=== PATIENT | female | born 1940 | race Caucasian/White ===

== ENCOUNTER 2019-03-15 20:41 | Inpatient (IN) ==
[2019-03-15] MEDS ORDERED: SODIUM CHLORIDE 0.9% 1000ML 1,000 ML IV ONE ×2 (21:35→23:13)
[2019-03-15] MEDS ORDERED: ONDANSETRON INJ 2 MG/ML 2 ML VIAL IV STA (21:35)
[2019-03-15] MEDS ORDERED: MoRPHine SULFATE 4 MG/ML 1 ML CARP\\VIAL IV STA (21:50)
[2019-03-15 21:58] LABS: Hematocrit (blood only) 44.4 % (37-47); Hemoglobin 14.8 g/dL (12.0-16.0); Mean Corpuscular Hemoglobin 29.4 pg (25-34); Mean Corpuscular Hgb Conc 33.3 g/dL (32-36); Mean Corpuscular Volume 88.1 fL (80-100); Mean Platelet Volume 11.1 fL (7.4-10.4); Platelet Count 339 K/uL (130-400); RDW Coefficient of Variation 14.8 % (11.5-14.5); RDW Standard Deviation 47.3 fL (36.4-46.3); Red Blood Count 5.04 M/uL (4.2-5.4); White Blood Count 28.12 K/uL (4.8-10.8)
--- NOTE | 2019-03-15 21:59 | XRay Report ---
XR chest 1V portable CLINICAL HISTORY: Pain, radiating to the abdomen. COMPARISON STUDY: 05/05/2009 FINDINGS: The heart is borderline enlarged. There is aortic tortuosity. There is no failure. There is no focal pulmonary consolidation. There is no free intraperitoneal air. There is minimal left basila r atelectasis.[ IMPRESSION: No active disease in the chest. Electronically signed by: Rm Patel M.D. 03/15/2019 9:58 PM
[2019-03-15 22:20] LABS: Basophils # (auto) 0.03 K/uL (0-0.2); Basophils % (auto) 0.1 %; Immature Granulocytes % (auto) 0.7 %; Lymphocytes # (auto) 0.68 K/uL (1.2-3.4); Lymphocytes % (auto) 2.4 %; Monocytes # (auto) 1.36 K/uL (0.11-0.59); Monocytes % (auto) 4.8 %; Neutrophils # (auto) 25.85 K/uL (1.4-6.5); Ovalocytes 1+
[2019-03-15 22:22] LABS: Albumin Level 3.2 gm/dl (3.4-5.0); BUN Creatinine Ratio 14.6 (10-20); Calcium 9.3 mg/dl (8.5-10.1); Creatinine Clr Calc Pharmacy 28.3 ml/min; Est GFR (African American) 37.7; Est GFR (Non-African American) 32.5; Potassium 3.8 mmol/L (3.5-5.1)
[2019-03-15 22:37] LABS: Albumin Globulin Ratio 0.8 (0.9-2); Bilirubin,Total 0.7 mg/dl (0.2-1); Globulin 3.9 gm/dl (2.5-4.0); Total Protein 7.1 gm/dl (6.4-8.2); Troponin I 0.028 ng/ml (0-0.045)
[2019-03-15] MEDS ORDERED: IOVERSOL 100ml IV PRN (22:49)
--- NOTE | 2019-03-15 23:01 | CT Scan Report ---
CT abd pelvis IV con only CLINICAL HISTORY: Bandlike central abdominal pain COMPARISON STUDY: None. TECHNIQUE: The patient was scanned in a dynamic helical fashion during intravenous administration of 90 cc of Optiray 320. A dose lowering technique was utilized adhering to the principles of ALARA. CT DOSE: 405.17 mGy.cm FINDINGS: Lower chest: r there is a partially visualized left apical 25 mm right breast mass. There are basilar atelectatic changes. Liver: The contrast-enhanced liver is normal in size, contour, and attenuation. There is no intrahepa tic biliary ductal dilatation. The hepatic veins and portal veins are patent. Gallbladder: Cholelithiasis. Mildly distended. Spleen: Normal in size and attenuation. Pancreas: Unremarkable. Adrenal glands: Unremarkable. Kidneys: There is symmetric renal cortical enhancement. The kidneys are normal in size without hydron ephrosis. Bowel: There are no transition zones indicate bowel obstruction. By history the appendix is surgicall y absent. There is extensive colonic wall thickening extending from the distal transverse colon to th e sigmoid colon. The findings are indicative a nonspecific colitis. Peritoneum: There is no intraperitoneal free air or abdominal ascites. There is a small fat-containin g umbilical hernia. Vasculature: There is no evidence of abdominal aortic aneurysm. There are moderately extensive aortoi liac atheromatous calcifications Adenopathy: None. Pelvic viscera: The bladder, and pelvic viscera are unremarkable. Skeletal structures: No destructive osseous lesions are seen. IMPRESSION: 1. No evidence of bowel obstruction. No evidence of free air 2. Extensive long segment colonic wall thickening extending from the distal transverse colon to the s igmoid indicative of a nonspecific colitis 3. Cholelithiasis 4. Partially visualized circumscribed elliptical 25 mm right breast mass Electronically signed by: Rm Patel M.D. 03/15/2019 10:59 PM
[2019-03-15] MEDS ORDERED: PIPERACILLIN/TAZOBACTAM 4.5 GM/120 ML BAG IV ONE (23:13)
[2019-03-15] MEDS ORDERED: PROMETHAZINE 12.5 MG/50.5 ML BAG IV STA (23:13)
[2019-03-15] MEDS ORDERED: PIPERACILL/TAZOBAC CONSULT ACTIVE PRN (23:13)
[2019-03-15] MEDS ORDERED: fentaNYL citrate 100 MCG/2 ML VIAL IV STA (23:30)
[2019-03-15 23:39] LABS: Magnesium 2.1 mg/dl (1.8-2.4)
[2019-03-15 23:45] LABS: Partial Thromboplastin Ratio 0.9; Partial Thromboplastin Time 25.2 Seconds (21.0-31.0)
[2019-03-16 00:05] LABS: Thyroid Stimulating Hormone 1.61 uIu/ml (0.300-4.500)
--- NOTE | 2019-03-16 00:34 | History & Physical Report ---
Date of Service March 16, 2019 Assessment & Plan (1) Colitis: Possible severe sepsis SIRS plus ARF plus lactic acid elevation, markedly elevated procalcitonin Rule out C. difficile Rule out calculous cholecystitis as contributory factor to GI symptoms given high alk phos Episodic hypoxemia Patient denies chest pain, S OB symptoms hx COPD as per records (Patient disputes EMR diagnosis.) Past tobacco abuse abnormal outpatient spirometry. CAD status post stent hypertension, stable hyperlipidemia on statin Rx Hyperglycemia, possible prediabetes, outpatient hemoglobin A1c of 5.9 in 2008 history of thigh melanoma status post surgery Right breast mass (present on 2018 mammogram) Medical telemetry given hypoxemia Supplemental O2 Baseline ABG Follow cultures, check C. difficile IVF, follow lactic acid Ceftriaxone, Flagyl for now Oral vancomycin if stool C. difficile positive GI consult if stool C. difficile negative RE colitis Gallbladder ultrasound RE abdominal pain, abnormal alk phos rule out calculous cholecystitis Baseline UA for ARF, hold home losartan until creatinine at baseline May need insulin sliding scale, update hemoglobin A1c Outpatient work-up for right breast mass as per PCP DVT prophylaxis. Heparin subcu Full code History of Present Illness Chief Complaint: Abdominal pain, diarrhea Primary Care Provider: Abhijit Rawls MD History obtained from patient, family, and records. Medical history significant for CAD status post stent, hypertension, hyperlipidemia, COPD as per records, past tobacco abuse, GERD, history of melanoma status post surgery. Recent confinement May 2009 for ACS. [place] [facility] [place] multivessel disease on cardiac catheterization. 1 day history of achy epigastric discomfort followed by nausea, bilious emesis, dark diarrhea episodes. No chest pain, no cough, no S OB. No known sick contacts, no recent antibiotics. 2 days ago patient ate venison at home at a family gathering. 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 At the ER, patient received IV Zosyn for possible sepsis. O2 sats transiently in the 80s at the ER as per RN even before IV Fentanyl administration. Medical History as above July 2018 Spirometry indicates a severe obstructive ventilatory defect. Reduction in FVC could be from obstruction or it may be due to concurrent restriction. Please repeat lung volumes, if clinically indicated.Flow-volume curve is consisitent with obstrucitve ventilatory defect. There is a positive bronchodilator response. Uncorrected diffusion capacity, is moderately reduced. DL/Va is normal. Low diffusion capacity, which is corrected by alveolar ventilation suggests extrathoracic restriction but can be seen in restrictive ventilatory defect also. May 2018 CT chest done after abnormality found on plain chest x-ray showed 1. multiple small lung nodules, one year follow-up chest CT recommended 2. nonspecific small bilateral adrenal nodules, 3 to 6 months follow-up MRI or CT with IV contrast recommended. 2018 mammogram showed scattered fibroglandular densities. No new dominant mass or clustered microcalcifications suspicious for malignancy. 2.5 cm focal asymmetry upper outer quadrant of the right breast proved to be a cyst noted on previous ultrasound. Surgical History : Knee surgery, breast lesion excision, dental surgery, BTL, appendectomy, melanoma surgery right thigh, right oophorectomy Family History : Heart disease, pancreatic cancer, high blood pressure Personal/Social history : Past tobacco abuse, occasional EtOH intake, homemaker in her younger years, lives with Allergies Allergy/AdvReac Type Severity Reaction Status Date / Time celecoxib Allergy Intermediate RASH Verified 03/15/19 23:40 Sulfa (Sulfonamide Allergy Intermediate RASH HIVES Verified 03/15/19 23:40 Antibiotics) rofecoxib AdvReac Intermediate BLEEDING Verified 03/15/19 23:40 Home Medications Home Medications Medication Instructions Recorded Confirmed Type albuterol sulfate 2.5 mg INHALATION Q4H PRN 03/15/19 03/15/19 History amlodipine 5 mg PO DAILY 03/15/19 03/15/19 History aspirin 81 mg PO DAILY 03/15/19 03/15/19 History clopidogrel [Plavix] 75 mg PO DAILY 03/15/19 03/15/19 History conj estrog-medroxyprogest terrell 1 tab PO DAILY 03/15/19 03/15/19 History [Prempro] cyclobenzaprine 5 mg PO TID PRN 03/15/19 03/15/19 History diclofenac sodium [Voltaren] 2 g TOPICAL BID 03/15/19 03/15/19 History ezetimibe [Zetia] 10 mg PO DAILY 03/15/19 03/15/19 History fexofenadine [Sil Allergy] 180 mg PO DAILY PRN 03/15/19 03/15/19 History losartan [Cozaar] 100 mg PO DAILY 03/15/19 03/15/19 History metoprolol tartrate 12.5 mg PO QPM 03/15/19 03/15/19 History metoprolol tartrate 25 mg PO QAM 03/15/19 03/15/19 History nitroglycerin 0.4 mg SUBLINGUAL DIRECTED PRN 03/15/19 03/15/19 History pantoprazole [Protonix] 40 mg PO BID 03/15/19 03/15/19 History rosuvastatin [Crestor] 5 mg PO DIRECTED 03/15/19 03/15/19 History sertraline [Zoloft] 25 mg PO DAILY 03/15/19 03/15/19 History tramadol 50 mg PO BID PRN 03/15/19 03/15/19 History Past Med/Surg History Medical History CAD (coronary artery disease) Hyperlipidemia Hypertension Surgical History History of coronary artery stent placement Family History Other No pertinent family history in first degree relatives Social History Feels Safe at Home: Yes Smoking Status: Current every day smoker Review of Systems Review of Systems: As per HPI, all 10 systems reviewed, all other ROS negative Physical Exam Physical Exam: GENERAL: Slightly uncomfortable, wane, episodic lethargy (post IV fentanyl administration at the ER), no respiratory distress SKIN: Normal color, warm HEENT: Evaro palpebral conjunctivae, no ptosis, dry buccal mucosa, nasal cannula in place NECK : Supple, no tenderness CHEST : Decreased breath sounds , no tenderness HEART : RRR, no obvious murmurs ABDOMEN: Some distention, hypogastric tenderness RECTAL : Intact sphincter, yellow stool (FOBT negative) EXTREMITIES : No LE swelling/tenderness, no other conspicuous deformities noted NEUROLOGIC : Coherent, no facial asymmetry, slightly hard of hearing, no other gross focality Results & Data Vital Signs (Past 12 Hours) Vital Signs Temp Pulse Pulse Resp BP BP Pulse Ox 03/16/19 00:08 80 21 105/61 90 03/15/19 23:26 82 22 124/70 91 03/15/19 22:30 80 24 132/70 95 03/15/19 22:11 81 26 H 90 03/15/19 22:00 78 20 131/84 94 03/15/19 21:45 81 26 H 131/84 90 03/15/19 21:38 95 03/15/19 20:46 37.2 C 89 20 115/76 94 Laboratory Results Laboratory Results WBC 28.12 K/uL (4.8-10.8) H 03/15/19 21:37 RBC 5.04 M/uL (4.2-5.4) 03/15/19 21:37 Hgb 14.8 g/dL (12.0-16.0) 03/15/19 21:37 Hct 44.4 % (37-47) 03/15/19 21:37 MCV 88.1 fL (80-100) 03/15/19 21:37 MCH 29.4 pg (25-34) 03/15/19 21:37 MCHC 33.3 g/dL (32-36) 03/15/19 21:37 RDW Std Deviation 47.3 fL (36.4-46.3) H 03/15/19 21:37 RDW Coeff of Jamison 14.8 % (11.5-14.5) H 03/15/19 21:37 Plt Count 339 K/uL (130-400) 03/15/19 21:37 MPV 11.1 fL (7.4-10.4) H 03/15/19 21:37 Immature Gran % (Auto) 0.7 % 03/15/19 21:37 Neut % (Auto) 92.0 % 03/15/19 21:37 Lymph % (Auto) 2.4 % 03/15/19 21:37 [place] % (Auto) 4.8 % 03/15/19 21:37 Eos % (Auto) 0.0 % 03/15/19 21:37 Baso % (Auto) 0.1 % 03/15/19 21:37 Immature Gran # (Auto) 0.20 K/uL (0.00-0.02) H 03/15/19 21:37 Neut # (Auto) 25.85 K/uL (1.4-6.5) H 03/15/19 21:37 Lymph # (Auto) 0.68 K/uL (1.2-3.4) L 03/15/19 21:37 [place] # (Auto) 1.36 K/uL (0.11-0.59) H 03/15/19 21:37 Eos # (Auto) 0.00 K/uL (0-0.5) 03/15/19 21:37 Baso # (Auto) 0.03 K/uL (0-0.2) 03/15/19 21:37 Ovalocytes 1+ 03/15/19 21:37 APTT 25.2 Seconds (21.0-31.0) 03/15/19 21:37 PTT Ratio 0.9 03/15/19 21:37 Sodium 136 mmol/L (136-145) 03/15/19 21:37 Potassium 3.8 mmol/L (3.5-5.1) 03/15/19 21:37 Chloride 107 mmol/L (98-107) 03/15/19 21:37 Carbon Dioxide 18 mmol/L (21-32) L 03/15/19 21:37 Anion Gap 12.0 (3-11) H 03/15/19 21:37 BUN 22 mg/dl (7-18) H 03/15/19 21:37 Creatinine 1.51 mg/dl (0.6-1.2) H 03/15/19 21:37 Est Cr Clr Drug Dosing 28.3 ml/min 03/15/19 21:37 Est GFR ( Amer) 37.7 03/15/19 21:37 Est GFR (Non-Af Amer) 32.5 03/15/19 21:37 BUN/Creatinine Ratio 14.6 (10-20) 03/15/19 21:37 Glucose 191 mg/dl (70-99) H 03/15/19 21:37 POC Lactic Acid [place]ade 4.06 mmol/L (0.90-1.70) H 03/15/19 23:08 Calcium 9.3 mg/dl (8.5-10.1) 03/15/19 21:37 Magnesium 2.1 mg/dl (1.8-2.4) 03/15/19 21:37 Total Bilirubin 0.7 mg/dl (0.2-1) 03/15/19 21:37 AST 43 U/L (15-37) H 03/15/19 21:37 ALT 29 U/L (12-78) 03/15/19 21:37 Alkaline Phosphatase 1047 U/L (45-117) H 03/15/19 21:37 Troponin I 0.028 ng/ml (0-0.045) 03/15/19 21:37 Total Protein 7.1 gm/dl (6.4-8.2) 03/15/19 21:37 Albumin 3.2 gm/dl (3.4-5.0) L 03/15/19 21:37 Globulin 3.9 gm/dl (2.5-4.0) 03/15/19 21:37 Albumin/Globulin Ratio 0.8 (0.9-2) L 03/15/19 21:37 Lipase 55 U/L (73-393) L 03/15/19 21:37 Procalcitonin 31.34 ng/ml (0-0.5) H 03/15/19 21:37 TSH 1.610 uIu/ml (0.300-4.500) 03/15/19 21:37 Diagnostic Findings Chest x-ray : No active disease EKG as per my interpretation : Rate 80, NSR, normal axis, LAE, T wave abnormalities septal leads CT abdomen pelvis initial read: 1. No evidence of bowel obstruction. No evidence of free air 2. Extensive long segment colonic wall thickening extending from the distal transverse colon to the sigmoid indicative of a nonspecific colitis 3. Cholelithiasis 4. Partially visualized circumscribed elliptical 25 mm right breast mass.
--- NOTE | 2019-03-16 01:05 | Emergency Department Note ---
Entered by Karly Messer acting as a scribe for Guillermo Jones MD History of Present Illness General Chief complaint: Vomiting Stated complaint: VOMITING, DIARRHEA, FEVER Time Seen by Provider: 03/15/19 21:34 Source: patient History of Present Illness Onset (ago): hour(s) (11) Location: abdomen Pain Consistency: + other (persistent ) Maximum Pain Intensity: 9 Associated symptoms: + diaphoresis, + nausea/vomiting (positive dry heaving; negative vomiting) and + other (positive loose stools); no chest pain and no shortness of breath Treatments prior to arrival: none The patient is a 78 year old white female w/ PMHx of HTN, HLD, and CAD status post stenting who presents to the ED w/ CC of persistent abdominal pain beginning at 1030 this morning, approximately 11 hours prior to arrival. The patient reports nausea and dry heaving, but denies vomiting. The patient states that she feels as though she has to have a bowel movement but is unable to. She states that her last bowel movement was loose. The patient reports sweating during this time. She denies chest pain and shortness of breath. The patient denies any treatments for her symptoms. The patient denies any recent changes in diet and medications. The patient states that she has well water. She denies any recent antibiotic use. The patient denies a history of blood clots. Home Medications Home Medications Medication Instructions Recorded Confirmed Type albuterol sulfate 2.5 mg INHALATION Q4H PRN 03/15/19 03/15/19 History amlodipine 5 mg PO DAILY 03/15/19 03/15/19 History aspirin 81 mg PO DAILY 03/15/19 03/15/19 History clopidogrel [Plavix] 75 mg PO DAILY 03/15/19 03/15/19 History conj estrog-medroxyprogest terrell 1 tab PO DAILY 03/15/19 03/15/19 History [Prempro] cyclobenzaprine 5 mg PO TID PRN 03/15/19 03/15/19 History diclofenac sodium [Voltaren] 2 g TOPICAL BID 03/15/19 03/15/19 History ezetimibe [Zetia] 10 mg PO DAILY 03/15/19 03/15/19 History fexofenadine [Sil Allergy] 180 mg PO DAILY PRN 03/15/19 03/15/19 History losartan [Cozaar] 100 mg PO DAILY 03/15/19 03/15/19 History metoprolol tartrate 12.5 mg PO QPM 03/15/19 03/15/19 History metoprolol tartrate 25 mg PO QAM 03/15/19 03/15/19 History nitroglycerin 0.4 mg SUBLINGUAL DIRECTED PRN 03/15/19 03/15/19 History pantoprazole [Protonix] 40 mg PO BID 03/15/19 03/15/19 History rosuvastatin [Crestor] 5 mg PO DIRECTED 03/15/19 03/15/19 History sertraline [Zoloft] 25 mg PO DAILY 03/15/19 03/15/19 History tramadol 50 mg PO BID PRN 03/15/19 03/15/19 History Allergies Allergy/AdvReac Type Severity Reaction Status Date / Time celecoxib Allergy Intermediate RASH Verified 03/15/19 23:40 Sulfa (Sulfonamide Allergy Intermediate RASH HIVES Verified 03/15/19 23:40 Antibiotics) Latex, Natural Rubber Allergy Mild Rash Verified 03/16/19 05:25 rofecoxib AdvReac Intermediate BLEEDING Verified 03/15/19 23:40 Past Med/Surg History Medical History CAD (coronary artery disease) Hyperlipidemia Hypertension Surgical History History of coronary artery stent placement Family History Other No pertinent family history in first degree relatives Social History Preferred Language: Yemeni Communication Ability: Effective Grout Machine Tender Required: No Beliefs That Will Affect Care: None Current Living Situation: Spouse Other Information That Helps Us Care for You: No Feels Safe at Home: Yes Safety Concerns: Feels Safe At This Time Smoking Status: Current some day smoker Tobacco Type: cigarettes ; Do You Dip or Chew Tobacco: No ; Tobacco Cessation Education Requested by Patient: No Hx Alcohol Use: No Hx Substance Use: No Review of Systems See HPI for pertinent positives & negatives. and A total of 10 systems reviewed and were otherwise negative Physical Exam Vital Signs Vital Signs - 24 hr 03/15/19 20:46 03/15/19 21:38 03/15/19 21:45 Temperature 37.2 C Temperature Source Oral Sepsis Recent Fever Within 48 Hours No Sepsis Action Taken by Nursing No Action Required Pulse Rate 89 81 Pulse Rate [Finger] Pulse Rate from SpO2 Sensor 81 Pulse Rhythm [Finger] Pulse Strength [Finger] Respiratory Rate 20 26 H Respiratory Effort / Characteristics Respiratory Depth Respiratory Pattern Blood Pressure 115/76 131/84 Blood Pressure [Left Arm] Blood Pressure Mean 89 99 Blood Pressure Mean [Left Arm] Pulse Oximetry 94 95 90 Oxygen Delivery Method Room Air Room Air Room Air 03/15/19 22:00 03/15/19 22:11 03/15/19 22:30 Temperature Temperature Source Sepsis Recent Fever Within 48 Hours Sepsis Action Taken by Nursing Pulse Rate 78 81 80 Pulse Rate [Finger] Pulse Rate from SpO2 Sensor 81 80 Pulse Rhythm [Finger] Pulse Strength [Finger] Respiratory Rate 20 26 H 24 Respiratory Effort / Characteristics Respiratory Depth Respiratory Pattern Blood Pressure 131/84 132/70 Blood Pressure [Left Arm] Blood Pressure Mean 99 90 Blood Pressure Mean [Left Arm] Pulse Oximetry 94 90 95 Oxygen Delivery Method Room Air Room Air Room Air 03/15/19 23:26 03/16/19 00:08 Temperature Temperature Source Sepsis Recent Fever Within 48 Hours Sepsis Action Taken by Nursing Pulse Rate Pulse Rate [Finger] 82 80 Pulse Rate from SpO2 Sensor Pulse Rhythm [Finger] Regular Regular Pulse Strength [Finger] Normal Normal Respiratory Rate 22 21 Respiratory Effort / Characteristics Non-Labored Spontaneous Non-Labored Spontaneous Respiratory Depth Normal Normal Respiratory Pattern Regular Regular Blood Pressure Blood Pressure [Left Arm] 124/70 105/61 Blood Pressure Mean Blood Pressure Mean [Left Arm] 88 75 Pulse Oximetry 91 90 Oxygen Delivery Method Room Air Room Air GENERAL: Well nourished, non-toxic. EYE EXAM: Normal conjunctiva. PERRL, no anisocoria and EOM's grossly intact w/o pain. OROPHARYNX: Moist mucus membranes. Grossly normal dentition. NECK: Supple, no nuchal rigidity, no adenopathy, non-tender. no signs of me ningismus. LUNGS: Clear to auscultation. Normal chest wall mechanics. HEART: NSR, no MRG. ABDOMEN: Mild abdominal tenderness to palpation. Abdomen soft, normo-active bowel sounds, no masses. Not peritonitic. BACK: No CVA TTP. SKIN: No rashes and no bruising. UPPER EXTREMITIES: Upper extremities are grossly normal. LOWER EXTREMITIES: No pitting edema. No calf pain. NEURO EXAM: A&O x3, cranial nerves II-XII grossly intact, normal speech, moves all 4 extremities on command w/o issue. Course 2144: Past medical records reviewed. The patient was evaluated in room A4B. A complete history and physical exam was performed. 2323: I discussed the case with Dr. Dao Hospitalist who accepts the patient for further evaluation. Consultations Consultation #1: I discussed the case with Dr. Dao [facility] who accepts the patient for further evaluation. Time: 23:23 Administered Medications Amlodipine Besylate (Norvasc) 5 mg PO DAILY [facility] Stop: 04/15/19 08:59 Last Admin: 03/16/19 08:24 Dose: 5 mg Documented by: [id number] Aspirin (Ecotrin Ectab) 81 mg PO DAILY [facility] Stop: 04/15/19 08:59 Last Admin: 03/16/19 08:24 Dose: 81 mg Documented by: [id number] Clopidogrel Bisulfate (Plavix) 75 mg PO DAILY [facility] Stop: 04/15/19 08:59 Last Admin: 03/16/19 08:24 Dose: 75 mg Documented by: [id number] Ezetimibe (Zetia) 10 mg PO DAILY [facility] Stop: 04/15/19 08:59 Last Admin: 03/16/19 08:26 Dose: 10 mg Documented by: [id number] Heparin Sodium (Porcine) (Heparin Sodium (Porcine)) 5,000 units SQ Q8 [facility] Stop: 04/15/19 05:59 Last Admin: 03/16/19 06:32 Dose: 5,000 units Documented by: [id number] Cosigned by: [id number] Metronidazole (Flagyl) 500 mg in 100 mls @ 100 mls/hr IV Q8H [facility]; Protocol Stop: 03/26/19 02:59 Last Infusion: 03/16/19 11:25 Dose: 0 mls/hr Documented by: [id number] Admin: 03/16/19 10:25 Dose: 100 mls/hr Documented by: [id number] Infusion: 03/16/19 04:14 Dose: 0 mls/hr Documented by: [id number] Admin: 03/16/19 02:53 Dose: 100 mls/hr Documented by: [id number] Ceftriaxone Sodium 1,000 mg/ (Dextrose) 60 mls @ 100 mls/hr IV Q24H [facility]; Protocol Stop: 03/26/19 08:59 Last Infusion: 03/16/19 09:01 Dose: 0 mls/hr Documented by: [id number] Admin: 03/16/19 08:25 Dose: 100 mls/hr Documented by: [id number] Promethazine HCl 12.5 mg/ (Sodium Chloride) 50.5 mls @ 202 mls/hr IV Q6H PRN PRN Reason: Nausea And Vomiting Stop: 04/15/19 02:39 Last Infusion: 03/16/19 09:06 Dose: 0 mls/hr Documented by: [id number] Admin: 03/16/19 08:51 Dose: 202 mls/hr Documented by: [id number] Metoprolol Tartrate (Lopressor) 25 mg PO QAM [facility] Stop: 04/15/19 08:59 Last Admin: 03/16/19 08:26 Dose: 25 mg Documented by: [id number] Pantoprazole Sodium (Protonix) 40 mg PO BID [facility] Stop: 04/15/19 08:59 Last Admin: 03/16/19 08:26 Dose: 40 mg Documented by: [id number] Sertraline HCl (Zoloft) 25 mg PO DAILY [facility] Stop: 04/15/19 08:59 Last Admin: 03/16/19 08:25 Dose: 25 mg Documented by: [id number] Tramadol HCl (Ultram) 50 mg PO Q4H PRN PRN Reason: Pain Stop: 04/15/19 02:39 Last Admin: 03/16/19 13:08 Dose: 50 mg Documented by: [id number] Discontinued Medications Fentanyl Citrate (Fentanyl Citrate) 50 mcg IV NOW STA Stop: 03/15/19 23:31 Last Admin: 03/15/19 23:55 Dose: 50 mcg Documented by: [id number] Sodium Chloride (Nss 1000ml) 1,000 mls @ 999 mls/hr IV .Q1H1M ONE Stop: 03/15/19 22:35 Last Infusion: 03/15/19 22:41 Dose: 0 mls/hr Documented by: [id number] Admin: 03/15/19 21:42 Dose: 999 mls/hr Documented by: [id number] Promethazine HCl (Phenergan) 12.5 mg in 50.5 mls @ 202 mls/hr IV NOW STA Stop: 03/15/19 23:27 Last Infusion: 03/16/19 00:07 Dose: 0 mls/hr Documented by: [id number] Admin: 03/15/19 23:29 Dose: 202 mls/hr Documented by: [id number] Sodium Chloride (Nss 1000ml) 1,000 mls @ 999 mls/hr IV .Q1H1M ONE Stop: 03/16/19 00:13 Last Infusion: 03/16/19 00:30 Dose: 0 mls/hr Documented by: [id number] Admin: 03/15/19 23:29 Dose: 999 mls/hr Documented by: [id number] Piperacillin Sod/Tazobactam Sod (Zosyn) 4.5 gm in 120 mls @ 240 mls/hr IV NOW ONE Stop: 03/15/19 23:42 Last Infusion: 03/16/19 00:30 Dose: 0 mls/hr Documented by: [id number] Admin: 03/15/19 23:56 Dose: 240 mls/hr Documented by: [id number] Lactated Ringer's (Lr) 1,000 mls @ 200 mls/hr IV .Q5H ONE Stop: 03/16/19 07:39 Last Infusion: 03/16/19 10:18 Dose: 0 mls/hr Documented by: [id number] Admin: 03/16/19 02:53 Dose: 200 mls/hr Documented by: [id number] Ioversol (Optiray 320 100ml) 90 ml IV ONCE PRN PRN Reason: Interaction Checking Stop: 03/19/19 22:48 Last Admin: 03/15/19 22:49 Dose: 90 ml Documented by: [id number] Morphine Sulfate (Morphine Sulfate) 4 mg IV NOW STA Stop: 03/15/19 21:51 Last Admin: 03/15/19 22:03 Dose: 4 mg Documented by: [id number] Ondansetron HCl (Zofran) 4 mg IV NOW STA Stop: 03/15/19 21:36 Last Admin: 03/15/19 21:42 Dose: 4 mg Documented by: [id number] Medical Decision Making Medical Records Attestation: I reviewed the patient's medical records. Home Medications Current Medication List: was personally reviewed by me Laboratory Data Attestation: I reviewed the patient's lab results. Result diagrams: 03/16/19 05:35 03/16/19 05:35 Lab Results 03/15/19 03/15/19 03/15/19 Range/Units 21:37 21:37 21:37 WBC 28.12 H (4.8-10.8) K/uL RBC 5.04 (4.2-5.4) M/uL Hgb 14.8 (12.0-16.0) g/dL Hct 44.4 (37-47) % MCV 88.1 (80-100) fL MCH 29.4 (25-34) pg MCHC 33.3 (32-36) g/dL RDW Std Deviation 47.3 H (36.4-46.3) fL RDW Coeff of Jamison 14.8 H (11.5-14.5) % Plt Count 339 (130-400) K/uL MPV 11.1 H (7.4-10.4) fL Immature Gran % (Auto) 0.7 % Neut % (Auto) 92.0 % Lymph % (Auto) 2.4 % Crisp % (Auto) 4.8 % Eos % (Auto) 0.0 % Baso % (Auto) 0.1 % Immature Gran # (Auto) 0.20 H (0.00-0.02) K/uL Neut # (Auto) 25.85 H (1.4-6.5) K/uL Lymph # (Auto) 0.68 L (1.2-3.4) K/uL Crisp # (Auto) 1.36 H (0.11-0.59) K/uL Eos # (Auto) 0.00 (0-0.5) K/uL Baso # (Auto) 0.03 (0-0.2) K/uL Ovalocytes 1+ APTT (21.0-31.0) Seconds PTT Ratio Sodium 136 (136-145) mmol/L Potassium 3.8 (3.5-5.1) mmol/L Chloride 107 (98-107) mmol/L Carbon Dioxide 18 L (21-32) mmol/L Anion Gap 12.0 H (3-11) BUN 22 H (7-18) mg/dl Creatinine 1.51 H (0.6-1.2) mg/dl Est Cr Clr Drug Dosing 28.3 ml/min Est GFR ( Amer) 37.7 Est GFR (Non-Af Amer) 32.5 BUN/Creatinine Ratio 14.6 (10-20) Glucose 191 H (70-99) mg/dl Estimat Average Glucose mg/dl Hemoglobin A1c (4.5-5.6) % POC Lactic Acid Slade (0.90-1.70) mmol/L Calcium 9.3 (8.5-10.1) mg/dl Magnesium 2.1 (1.8-2.4) mg/dl Total Bilirubin 0.7 (0.2-1) mg/dl AST 43 H (15-37) U/L ALT 29 (12-78) U/L Alkaline Phosphatase 1047 H (45-117) U/L Troponin I 0.028 (0-0.045) ng/ml Total Protein 7.1 (6.4-8.2) gm/dl Albumin 3.2 L (3.4-5.0) gm/dl Globulin 3.9 (2.5-4.0) gm/dl Albumin/Globulin Ratio 0.8 L (0.9-2) Lipase 55 L (73-393) U/L Procalcitonin 31.34 H (0-0.5) ng/ml TSH 1.610 (0.300-4.500) uIu/ml 03/15/19 03/15/19 03/15/19 Range/Units 21:37 21:37 23:08 WBC (4.8-10.8) K/uL RBC (4.2-5.4) M/uL Hgb (12.0-16.0) g/dL Hct (37-47) % MCV (80-100) fL MCH (25-34) pg MCHC (32-36) g/dL RDW Std Deviation (36.4-46.3) fL RDW Coeff of Jamison (11.5-14.5) % Plt Count (130-400) K/uL MPV (7.4-10.4) fL Immature Gran % (Auto) % Neut % (Auto) % Lymph % (Auto) % Crisp % (Auto) % Eos % (Auto) % Baso % (Auto) % Immature Gran # (Auto) (0.00-0.02) K/uL Neut # (Auto) (1.4-6.5) K/uL Lymph # (Auto) (1.2-3.4) K/uL Crisp # (Auto) (0.11-0.59) K/uL Eos # (Auto) (0-0.5) K/uL Baso # (Auto) (0-0.2) K/uL Ovalocytes APTT 25.2 (21.0-31.0) Seconds PTT Ratio 0.9 Sodium (136-145) mmol/L Potassium (3.5-5.1) mmol/L Chloride (98-107) mmol/L Carbon Dioxide (21-32) mmol/L Anion Gap (3-11) BUN (7-18) mg/dl Creatinine (0.6-1.2) mg/dl Est Cr Clr Drug Dosing ml/min Est GFR ( Amer) Est GFR (Non-Af Amer) BUN/Creatinine Ratio (10-20) Glucose (70-99) mg/dl Estimat Average Glucose 131 mg/dl Hemoglobin A1c 6.2 H (4.5-5.6) % POC Lactic Acid Slade 4.06 H (0.90-1.70) mmol/L Calcium (8.5-10.1) mg/dl Magnesium (1.8-2.4) mg/dl Total Bilirubin (0.2-1) mg/dl AST (15-37) U/L ALT (12-78) U/L Alkaline Phosphatase (45-117) U/L Troponin I (0-0.045) ng/ml Total Protein (6.4-8.2) gm/dl Albumin (3.4-5.0) gm/dl Globulin (2.5-4.0) gm/dl Albumin/Globulin Ratio (0.9-2) Lipase (73-393) U/L Procalcitonin (0-0.5) ng/ml TSH (0.300-4.500) uIu/ml Imaging Data Radiologist's Impression: Radiology results as stated below per my review and the radiologist's interpretation: XR chest 1V portable CLINICAL HISTORY: Pain, radiating to the abdomen. COMPARISON STUDY: 05/05/2009 FINDINGS: The heart is borderline enlarged. There is aortic tortuosity. There is no failure. There is no focal pulmonary consolidation. There is no free intraperitoneal air. There is minimal left basilar atelectasis.[ IMPRESSION: No active disease in the chest. Electronically signed by: Rm Patel M.D. 03/15/2019 9:[address] abd pelvis IV con only CLINICAL HISTORY: Bandlike central abdominal pain COMPARISON STUDY: None. TECHNIQUE: The patient was scanned in a dynamic helical fashion during intravenous administration of 90 cc of Optiray 320. A dose lowering technique was utilized adhering to the principles of ALARA. CT DOSE: 405.17 mGy.cm FINDINGS: Lower chest: r there is a partially visualized left apical 25 mm right breast mass. There are basilar atelectatic changes. Liver: The contrast-enhanced liver is normal in size, contour, and attenuation. There is no intrahepatic biliary ductal dilatation. The hepatic veins and portal veins are patent. Gallbladder: Cholelithiasis. Mildly distended. Spleen: Normal in size and attenuation. Pancreas: Unremarkable. Adrenal glands: Unremarkable. Kidneys: There is symmetric renal cortical enhancement. The kidneys are normal in size without hydronephrosis. Bowel: There are no transition zones indicate bowel obstruction. By history the appendix is surgically absent. There is extensive colonic wall thickening extending from the distal transverse colon to the sigmoid colon. The findings are indicative a nonspecific colitis. Peritoneum: There is no intraperitoneal free air or abdominal ascites. There is a small fat-containing umbilical hernia. Vasculature: There is no evidence of abdominal aortic aneurysm. There are moderately extensive aortoiliac atheromatous calcifications Adenopathy: None. Pelvic viscera: The bladder, and pelvic viscera are unremarkable. Skeletal structures: No destructive osseous lesions are seen. IMPRESSION: 1. No evidence of bowel obstruction. No evidence of free air 2. Extensive long segment colonic wall thickening extending from the distal transverse colon to the sigmoid indicative of a nonspecific colitis 3. Cholelithiasis 4. Partially visualized circumscribed elliptical 25 mm right breast mass Electronically signed by: Rm Patel M.D. 03/15/2019 10:59 PM ECG Data Attestation: I personally reviewed and interpreted this ECG as follows: Indication: abdominal pain Rate (beats per minute): 78 Rhythm: normal sinus Findings: + other (normal intervals; normal axis), + Q waves (in V2) and + T- wave inversion Comparison ECG Date: from (05/05/2009) Change: the following changes noted (Q wave new; TWI improved in the anterior leads) Blood Pressure Blood Pressure Findings: Elevated blood pressure Blood Pressure Disposition: further management by hospitalist MDM Narrative The patient is a 78 year old white female w/ PMHx of HTN, HLD, and CAD status post stenting who presents to the ED w/ CC of persistent abdominal pain beginning at 1030 this morning, approximately 11 hours prior to arrival. Differential diagnoses includes but is not limited to gastritis, peptic ulcer disease, GERD, gallbladder disease, pancreatitis, small bowel obstruction, acute coronary syndrome, pericarditis, ischemic bowel, irritable bowel disease, irritable bowel syndrome, appendicitis, diverticulitis, malignancy, hernia, urinary tract infection, torsion, /ectopic , perforation, trauma, infectious. Patient was seen and evaluated the bedside. The patient had been complaining some abdominal discomfort and associated nausea with vomiting. The patient has also complained of some runny stool. Patient does have a history of chronic smoking. Patient was counseled on smoking cessation. I counseled patient on smoking cessation for 5 minutes. Treatment options discussed and resources provided. Patient was not receptive. Patient did have mid abdominal discomfort so blood work was obtained. Patient did have an elevated white count and slightly low bicarb. I did consider the possibility of ischemic bowel so a lactate was ordered. Patient CT showed a nonspecific colitis. Upon reassessment the patient still had pain but has not had any vomiting. Patient did have an elevated white count so I did order blood cultures Zosyn and additional IV fluids as the patient's lactate was 4. Patient does not have signs of peritonitis at this time. I did consider the possibility of ischemic bowel and did relate this to the on-call hospitalist but believe the patient would benefit from repeat abdominal exams and reassessment within the hospital for the colitis seen on CT even though there is no evidence of abscess or diverticulitis. Patient has not complained of any rectal bleeding. Patient does have a normal H&H. The patient has not been tachycardic or febrile. However, the patient is on a beta-cecilia. I did order a repeat lactate that was to result after the admission. I did speak the on-call hospitalist agreed to further evaluate treat the patient. Patient was admitted to the medicine service. I did reassess the patient 1 AM. The patient no longer had pain only pressure. Patient stated she felt improved. Impression & Plan Nausea & vomiting, Abdominal pain, Colitis, Encounter for smoking cessation counseling Discharge Plan Visit Data *Final* Discharge Date/Time: 03/16/19 01:55 Chief Complaint: Vomiting Stated Complaint: VOMITING, DIARRHEA, FEVER ED Provider: Guillermo Jones Discharge Problem: Nausea & vomiting, Abdominal pain, Colitis, Encounter for smoking cessation counseling Patient Disposition: Admitted As Inpatient Discharge Instructions Interventions: ED Discharge Assessment Last Done: 03/16/19 01:55 Discharge Problem: Nausea & vomiting Qualifiers: Vomiting type: unspecified Vomiting Intractability: non-intractable Qualified Code(s): R11.2 - Nausea with vomiting, unspecified Abdominal pain Qualifiers: Abdominal location: periumbilical Qualified Code(s): R10.33 - Periumbilical pain The scribe's documentation has been prepared under my direction and personally reviewed by me in its entirety. I confirm that the note above accurately reflects all work, treatment, procedures, and medical decision making performed by me.
[2019-03-16 01:51] LABS: Allen Test POS (Pos); Base Excess ABG -7.5 mEq/L (-9-1.8); HCO3 ABG 19 mmol/L (19-24); Oxygen Saturation ABG 95.5 % (90-95); PCO2 ABG 43 mmHg (35-46); PO2 ABG 86 mm/Hg (80-95); pH ABG 7.27 (7.35-7.45)
[2019-03-16] MEDS ORDERED: LACTATED RINGER'S 1,000 ML IV ONE (02:40)
[2019-03-16] MEDS ORDERED: ACETAMINOPHEN 325 MG TAB PO PRN (02:40)
[2019-03-16] MEDS ORDERED: HYDROmorphone INJ 0.5 MG/0.5 ML SYR IV PRN (02:40)
[2019-03-16] MEDS ORDERED: NITROGLYCERIN SL 0.4 MG/TAB TAB SL PRN ×2 (02:40)
[2019-03-16] MEDS ORDERED: PROMETHAZINE HCL 12.5 MG in SODIUM CHLORIDE 0.9% 50 ML IV PRN (02:40)
[2019-03-16] MEDS: metroNIDAZOLE 500 MG/100 ML BAG IV SCH ×3 (02:53→18:48)
[2019-03-16 05:42] LABS: Appearance Urine Clear (Clear); Color Urine Dark Yellow; Specific Gravity Urine > 1.045 (1.000-1.030)
[2019-03-16 05:59] LABS: Hematocrit (blood only) 37.1 % (37-47); Hemoglobin 12.4 g/dL (12.0-16.0); Mean Corpuscular Hemoglobin 29.4 pg (25-34); Mean Corpuscular Hgb Conc 33.4 g/dL (32-36); Mean Corpuscular Volume 87.9 fL (80-100); Platelet Count 286 K/uL (130-400); RDW Coefficient of Variation 14.9 % (11.5-14.5); Red Blood Count 4.22 M/uL (4.2-5.4); White Blood Count 26.18 K/uL (4.8-10.8)
[2019-03-16] MEDS ORDERED: HEPARIN SOD 5,000 UNIT/0.5 ML VIAL SQ SCH (06:00)
[2019-03-16 06:01] LABS: Estimated Average Glucose 131 mg/dl; Hemoglobin A1C 6.2 % (4.5-5.6)
[2019-03-16 06:03] LABS: Ictotest Urine Negative (Negative)
[2019-03-16 06:20] LABS: Basophils # (auto) 0.02 K/uL (0-0.2); Basophils % (auto) 0.1 %; Dohle Bodies Occasional; Echinocytes 3+; Immature Granulocytes # (auto) 0.08 K/uL (0.00-0.02); Immature Granulocytes % (auto) 0.3 %; Lymphocytes # (auto) 1.07 K/uL (1.2-3.4); Lymphocytes % (auto) 4.1 %; Monocytes # (auto) 1.33 K/uL (0.11-0.59); Monocytes % (auto) 5.1 %; Neutrophils # (auto) 23.68 K/uL (1.4-6.5); Neutrophils % (auto) 90.4 %; Ovalocytes 1+
[2019-03-16 06:30] LABS: Bacteria Urine Automated Negative (Negative); Blood Urine 1+ (Negative); Epithelial Cell Urine Auto >30 /lpf (0-5); Glucose Urine UA Negative (Negative); Ketones Urine Negative (Negative); Leukocyte Esterase Urine Trace (Negative); Nitrite Urine Positive (Negative); Protein Urine Trace (Negative); RBC Urine Automated 0-4 /hpf (0-4); Urobilinogen Urine Negative (Negative)
--- NOTE | 2019-03-16 06:30 | XRay Report ---
XR chest 1V portable HISTORY: 78 years-old Female low o2 acute hypoxia COMPARISON: Chest radiograph 03/15/2019 TECHNIQUE: Portable AP view of the chest FINDINGS: Cardiomediastinal and hilar silhouettes are within normal limits. Minimal subsegmental left basilar o pacities suggest probable atelectasis. There is no pneumothorax, large pleural effusion, lobar airspa ce consolidation or overt pulmonary edema. Bones of the chest appear grossly intact. IMPRESSION: No acute process. The above report was generated using voice recognition software. It may contain grammatical, syntax o r spelling errors. Electronically signed by: Ulices White M.D. 03/16/2019 6:28 AM
[2019-03-16 06:32] LABS: Bilirubin Urine Negative (Negative)
[2019-03-16 06:40] LABS: Albumin Level 2.4 gm/dl (3.4-5.0); BUN Creatinine Ratio 17.6 (10-20); Bilirubin Direct 0.2 mg/dl (0-0.2); Bilirubin,Total 0.5 mg/dl (0.2-1); Calcium 8.4 mg/dl (8.5-10.1); Creatinine Clr Calc Pharmacy 39.2 ml/min; Est GFR (African American) 55.9; Est GFR (Non-African American) 48.2; Potassium 4.8 mmol/L (3.5-5.1); Total Protein 5.7 gm/dl (6.4-8.2)
--- NOTE | 2019-03-16 06:52 | Ultrasound Report ---
US gallbladder HISTORY: 78 years-old Female abd pain acute right upper quadrant abdominal pain COMPARISON: CT abdomen and pelvis 03/15/2019 TECHNIQUE: Multiple real-time sonographic images of the abdominal right upper quadrant were obtained assessing grayscale appearance and color flow FINDINGS: Imaged pancreas is unremarkable. The liver is within normal limits without focal mass or intrahepatic biliary ductal dilation. Distended gallbladder. A large mobile gallstone is noted measuring up to 2. 9 cm. No gallbladder wall thickening or pericholecystic fluid. Sonographic Burnett sign reported as ne gative. Common bile duct is normal, 5 mm. The imaged right kidney demonstrates mild likely physiologi c pelvocaliectasis. IMPRESSION: 1. Mild gallbladder distention with single large mobile gallstone. No sonographic evidence of acute c holecystitis. 2. No biliary ductal dilation. The above report was generated using voice recognition software. It may contain grammatical, syntax o r spelling errors. Electronically signed by: Ulices White M.D. 03/16/2019 6:50 AM
[2019-03-16] MEDS: CLOPIDOGREL BISULFATE 75 MG TAB PO SCH (08:24)
[2019-03-16] MEDS: AMLODIPINE BESYLATE 5 MG TAB PO SCH (08:24)
[2019-03-16] MEDS: ASPIRIN 81 MG ECTAB PO SCH (08:24)
[2019-03-16] MEDS: cefTRIAXone SODIUM 1,000 MG in DEXTROSE 5% 50 ML IV SCH (08:25)
[2019-03-16] MEDS: SERTRALINE HCL 50 MG TABLET PO SCH (08:25)
[2019-03-16] MEDS: METOPROLOL TARTRATE 25 MG TAB PO SCH (08:26)
[2019-03-16] MEDS: EZETIMIBE 10 MG TABLET PO SCH (08:26)
[2019-03-16] MEDS: PANTOprazole 40 MG TAB PO SCH ×2 (08:26→21:13)
--- NOTE | 2019-03-16 11:58 | Hospitalist Progress Note ---
Date of Service March 16, 2019 Assessment & Plan (1) Colitis: Possible related to viral gastroenteritis meet criteria for SIRS with elevated RR and leukocytosis Procalcitonin and POC lactate elevated CT abd/pelvis showed extensive long segment colonic wall thickening extending from the distal transverse colon to the sigmoid indicative of a nonspecific colitis Received IV Zosyn in the ER Continue IV Metronidazole and Rocephin for now Blood cx and urine cx pending Continue clear liquid diet Will get KUB in am Monitor electrolytes Hematuria One episode of hematuria Possible related to anticoagulant since pt on plavix, aspirin and heparin subq was given Will d/c heparin subq Will repeat H/H later Continue monitor closely HTN Continue metoprolol and amlodipine Will resume Losartan in am Breast mass Last Mammogram in 2017 showed scattered fibroglandular densities. No new dominant mass or clustered microcalcifications suspicious for malignancy. 2.5 cm focal asymmetry upper outer quadrant of the right breast proved to be a cyst noted on previous ultrasound. Continue monitor outpatient Stable Lung Nodule CT on 05/2018 showed multiple small lung nodules Will need one year follow-up chest CT recommended DVT px Heparin subq discontinued due to hematuria Will add SCD CODE STATUS FULL CODE Subjective Pt was seen and examined Lying in bed with no distress Pt said that she feels nauseated She said that she does not feel hungry She said that she had an episode of hematuria early today Denies any chest pain, palpitation, dizziness and SOB Physical Exam Physical Exam: General- No acute distress Head- atraumatic Eyes- PERRL, EOMI, ENT- oropharynx clear Neck- supple, no JVD Lungs- clear to auscultation Heart- regular rhythm; no murmur Abdomen- normal bowel sounds, soft, nontender Extremities- no calf tenderness Neuro- alert, oriented x 3; PERRL, EOMI; no facial palsy; no dysarthria Skin- warm & dry Results & Data Vital Signs (Past 12 Hours) Vital Signs Temp Pulse Pulse Resp BP BP Pulse Ox 03/16/19 11:34 37.0 C 74 20 127/74 90 03/16/19 07:52 36.5 C 88 16 110/57 L 97 03/16/19 07:48 37.0 C 81 20 114/72 93 03/16/19 07:00 75 03/16/19 04:22 37.3 C 74 18 143/78 H 2 L 03/16/19 02:23 74 03/16/19 01:55 84 118/74 95 03/16/19 01:11 79 18 115/66 88 L 03/16/19 00:43 76 20 100/58 L 95 03/16/19 00:08 80 21 105/61 90
[2019-03-16] MEDS: TRAMADOL HCL 50 MG TABLET PO PRN (13:08)
[2019-03-16] MEDS ORDERED: METOPROLOL TARTRATE 25 MG TAB PO SCH (21:00)
[2019-03-17] MEDS: metroNIDAZOLE 500 MG/100 ML BAG IV SCH ×2 (02:34→10:46)
[2019-03-17] MEDS: EZETIMIBE 10 MG TABLET PO SCH (07:34)
[2019-03-17] MEDS: CLOPIDOGREL BISULFATE 75 MG TAB PO SCH (07:34)
[2019-03-17] MEDS: SERTRALINE HCL 50 MG TABLET PO SCH (07:34)
[2019-03-17] MEDS: PANTOprazole 40 MG TAB PO SCH (07:34)
[2019-03-17] MEDS: AMLODIPINE BESYLATE 5 MG TAB PO SCH (07:34)
[2019-03-17] MEDS: METOPROLOL TARTRATE 25 MG TAB PO SCH (07:35)
[2019-03-17] MEDS: ASPIRIN 81 MG ECTAB PO SCH (07:35)
[2019-03-17 08:27] LABS: Hematocrit (blood only) 36.2 % (37-47); Hemoglobin 12.1 g/dL (12.0-16.0); Mean Corpuscular Hemoglobin 29.5 pg (25-34); Mean Corpuscular Hgb Conc 33.4 g/dL (32-36); Mean Corpuscular Volume 88.3 fL (80-100); Mean Platelet Volume 10.9 fL (7.4-10.4); Platelet Count 268 K/uL (130-400); RDW Coefficient of Variation 15.3 % (11.5-14.5); RDW Standard Deviation 48.9 fL (36.4-46.3)
[2019-03-17] MEDS: cefTRIAXone SODIUM 1,000 MG in DEXTROSE 5% 50 ML IV SCH (08:39)
[2019-03-17 08:54] LABS: BUN Creatinine Ratio 12.9 (10-20); Calcium 8.9 mg/dl (8.5-10.1); Creatinine Clr Calc Pharmacy 54.7 ml/min; Est GFR (African American) 83.8; Est GFR (Non-African American) 72.3; Potassium 3.7 mmol/L (3.5-5.1)
[2019-03-17] MEDS: TRAMADOL HCL 50 MG TABLET PO PRN (11:00)
--- NOTE | 2019-03-17 15:49 | Hospitalist Progress Note ---
Date of Service March 17, 2019 Assessment & Plan (1) Colitis: Possible related to viral gastroenteritis meet criteria for SIRS with elevated RR and leukocytosis Procalcitonin and POC lactate elevated CT abd/pelvis showed extensive long segment colonic wall thickening extending from the distal transverse colon to the sigmoid indicative of a nonspecific colitis Received IV Zosyn in the ER On IV Metronidazole and Rocephin for now WBC trending down to 20K Blood cx no growth and urine cx grew pinpoint growth Diet advanced as tolerated Denies any diarrhea and nausea Monitor electrolytes Pt would like to go home today. I encouraged her to stay for one more night that we can trend the WBC and follow on urine cx, but refused to stay in the hospital Will change antibiotic to Cipro and flagyl PO forx5 days Will check CBC within 1 week to monitor WBC Pt was advised if her symptoms reoccur or develop any fever to seek medical attention Hematuria One episode of hematuria Possible related to anticoagulant since pt on plavix, aspirin and heparin subq was given Heparin subq was discontinued Hemoglobin stable Continue monitor closely HTN BP stable Continue metoprolol, Losatan and amlodipine Breast mass Last Mammogram in 2017 showed scattered fibroglandular densities. No new dominant mass or clustered microcalcifications suspicious for malignancy. 2.5 cm focal asymmetry upper outer quadrant of the right breast proved to be a cyst noted on previous ultrasound. Continue outpatient follow up Stable Lung Nodule CT on 05/2018 showed multiple small lung nodules Will need one year follow-up chest CT recommended DVT px Heparin subq discontinued due to hematuria On SCDs CODE STATUS FULL CODE Disposition Will discharge home today Subjective Pt was seen and examined Sitting at the edge of the bed with no distress Pt said that she feels fine She said that she has no more diarrhea since yesterday She tolerated her diet She does not want to stay in the hospital for another night She is very anxious to go home today Denies any chest pain, palpitation, dizziness, nausea/vomiting and SOB Physical Exam Physical Exam: General- No acute distress Head- atraumatic Eyes- PERRL, EOMI, ENT- oropharynx clear Neck- supple, no JVD Lungs- clear to auscultation Heart- regular rhythm; no murmur Abdomen- normal bowel sounds, soft, nontender Extremities- no calf tenderness Neuro- alert, oriented x 3; PERRL, EOMI; no facial palsy; no dysarthria Skin- warm & dry Results & Data Vital Signs (Past 12 Hours) Vital Signs Temp Pulse Pulse Resp BP Pulse Ox 03/17/19 15:38 77 03/17/19 12:00 36.8 C 74 20 135/79 91 03/17/19 07:59 36.9 C 122 H 20 146/92 H 95 03/17/19 04:00 37 C 84 20 147/79 H 90
[2019-03-17] MEDS ORDERED: metroNIDAZOLE 500 MG TAB PO SCH (21:00)
[2019-03-17] MEDS ORDERED: CIPROFLOXACIN 500 MG TAB PO SCH (21:00)
[2019-03-18] MEDS ORDERED: ROSUVASTATIN CALCIUM 5 MG TAB PO SCH (09:00)
--- NOTE | 2019-03-18 09:48 | Discharge Summary ---
Date of Service March 17, 2019 Admission HPI Per Admitting Provider History obtained from patient, family, and records. Medical history significant for CAD status post stent, hypertension, hyperlipidemia, COPD as per records, past tobacco abuse, GERD, history of melanoma status post surgery. Recent confinement May 2009 for ACS. Patient transferred to [facility] due to multivessel disease on cardiac catheterization. 1 day history of achy epigastric discomfort followed by nausea, bilious emesis, dark diarrhea episodes. No chest pain, no cough, no S OB. No known sick contacts, no recent antibiotics. 2 days ago patient ate venison at home at a family gathering. No report of diarrheal illness from other libertarian attendants. At the ER, patient received IV Zosyn for possible sepsis. O2 sats transiently in the 80s at the ER as per RN even before IV Fentanyl administration. Medical History as above July 2018 Spirometry indicates a severe obstructive ventilatory defect. Reduction in FVC could be from obstruction or it may be due to concurrent restriction. Please repeat lung volumes, if clinically indicated.Flow-volume curve is consisitent with obstrucitve ventilatory defect. There is a positive bronchodilator response. Uncorrected diffusion capacity, is moderately reduced. DL/Va is normal. Low diffusion capacity, which is corrected by alveolar ventilation suggests extrathoracic restriction but can be seen in restrictive ventilatory defect also. May 2018 CT chest done after abnormality found on plain chest x-ray showed 1. multiple small lung nodules, one year follow-up chest CT recommended 2. nonspecific small bilateral adrenal nodules, 3 to 6 months follow-up MRI or CT with IV contrast recommended. 2018 mammogram showed scattered fibroglandular densities. No new dominant mass or clustered microcalcifications suspicious for malignancy. 2.5 cm focal asymmetry upper outer quadrant of the right breast proved to be a cyst noted on previous ultrasound. Surgical History : Knee surgery, breast lesion excision, dental surgery, BTL, appendectomy, melanoma surgery right thigh, right oophorectomy Family History : Heart disease, pancreatic cancer, high blood pressure Personal/Social history : Past tobacco abuse, occasional EtOH intake, homemaker in her younger years, lives with Admission Exam Per Admitting Provider GENERAL: Slightly uncomfortable, wane, episodic lethargy (post IV fentanyl administration at the ER), no respiratory distress SKIN: Normal color, warm HEENT: [place] palpebral conjunctivae, no ptosis, dry buccal mucosa, nasal cannula in place NECK : Supple, no tenderness CHEST : Decreased breath sounds , no tenderness HEART : RRR, no obvious murmurs ABDOMEN: Some distention, hypogastric tenderness RECTAL : Intact sphincter, yellow stool (FOBT negative) EXTREMITIES : No LE swelling/tenderness, no other conspicuous deformities noted NEUROLOGIC : Coherent, no facial asymmetry, slightly hard of hearing, no other gross focality Principal Diagnosis Colitis Hematuria HTN Breast mass Lung Nodule Discharge Exam General- No acute distress Head- atraumatic Eyes- PERRL, EOMI, ENT- oropharynx clear Neck- supple, no JVD Lungs- clear to auscultation Heart- regular rhythm; no murmur Abdomen- normal bowel sounds, soft, nontender Extremities- no calf tenderness Neuro- alert, oriented x 3; PERRL, EOMI; no facial palsy; no dysarthria Skin- warm & dry Discharge Data Allergies Allergy/AdvReac Type Severity Reaction Status Date / Time celecoxib Allergy Intermediate RASH Verified 03/15/19 23:40 Sulfa (Sulfonamide Allergy Intermediate RASH HIVES Verified 03/15/19 23:40 Antibiotics) Latex, Natural Rubber Allergy Mild Rash Verified 03/16/19 05:25 rofecoxib AdvReac Intermediate BLEEDING Verified 03/15/19 23:40 Consultations 03/15/19 23:14 ED Decision to Admit Stat Ordered Studies 03/15/19 21:50 CT abd pelvis IV con only Stat 03/16/19 03:44 US gallbladder Urgent US gallbladder HISTORY: 78 years-old Female abd pain acute right upper quadrant abdominal pain COMPARISON: CT abdomen and pelvis 03/15/2019 TECHNIQUE: Multiple real-time sonographic images of the abdominal right upper quadrant were obtained assessing grayscale appearance and color flow FINDINGS: Imaged pancreas is unremarkable. The liver is within normal limits without focal mass or intrahepatic biliary ductal dilation. Distended gallbladder. A large mobile gallstone is noted measuring up to 2.9 cm. No gallbladder wall thickening or pericholecystic fluid. Sonographic Burnett sign reported as negative. Common bile duct is normal, 5 mm. The imaged right kidney demonstrates mild likely phys iologic pelvocaliectasis. IMPRESSION: 1. Mild gallbladder distention with single large mobile gallstone. No sonographic evidence of acute cholecystitis. 2. No biliary ductal dilation. The above report was generated using voice recognition software. It may contain grammatical, syntax or spelling errors. Electronically signed by: Ulices White M.D. 03/16/2019 6:50 AM Dictated: 03/16/19648 Transcribed: 03/16/19648 XR chest 1V portable HISTORY: 78 years-old Female low o2 acute hypoxia COMPARISON: Chest radiograph 03/15/2019 TECHNIQUE: Portable AP view of the chest FINDINGS: Cardiomediastinal and hilar silhouettes are within normal limits. Minimal subsegmental left basilar opacities suggest probable atelectasis. There is no pneumothorax, large pleural effusion, lobar airspace consolidation or overt pulmonary edema. Bones of the chest appear grossly intact. IMPRESSION: No acute process. The above report was generated using voice recognition software. It may contain grammatical, syntax or spelling errors. Electronically signed by: Ulices White M.D. 03/16/2019 6:28 AM Dictated: 03/16/19626 Transcribed: 03/16/19626 XR chest 1V portable CLINICAL HISTORY: Pain, radiating to the abdomen. COMPARISON STUDY: 05/05/2009 FINDINGS: The heart is borderline enlarged. There is aortic tortuosity. There is no failure. There is no focal pulmonary consolidation. There is no free intraperitoneal air. There is minimal left basilar atelectasis.[ IMPRESSION: No active disease in the chest. Electronically signed by: Rm Patel M.D. 03/15/2019 9:58 PM Dictated: 03/15/192157 Transcribed: 03/15/192157 CT abd pelvis IV con only CLINICAL HISTORY: Bandlike central abdominal pain COMPARISON STUDY: None. TECHNIQUE: The patient was scanned in a dynamic helical fashion during intravenous administration of 90 cc of Optiray 320. A dose lowering technique was utilized adhering to the principles of ALARA. CT DOSE: 405.17 mGy.cm FINDINGS: Lower chest: r there is a partially visualized left apical 25 mm right breast mass. There are basilar atelectatic changes. Liver: The contrast-enhanced liver is normal in size, contour, and attenuation. There is no intrahepatic biliary ductal dilatation. The hepatic veins and portal veins are patent. Gallbladder: Cholelithiasis. Mildly distended. Spleen: Normal in size and attenuation. Pancreas: Unremarkable. Adrenal glands: Unremarkable. Kidneys: There is symmetric renal cortical enhancement. The kidneys are normal in size without hydronephrosis. Bowel: There are no transition zones indicate bowel obstruction. By history the appendix is surgically absent. There is extensive colonic wall thickening extending from the distal transverse colon to the sigmoid colon. The findings are indicative a nonspecific colitis. Peritoneum: There is no intraperitoneal free air or abdominal ascites. There is a small fat-containing umbilical hernia. Vasculature: There is no evidence of abdominal aortic aneurysm. There are moderately extensive aortoiliac atheromatous calcifications Adenopathy: None. Pelvic viscera: The bladder, and pelvic viscera are unremarkable. Skeletal structures: No destructive osseous lesions are seen. IMPRESSION: 1. No evidence of bowel obstruction. No evidence of free air 2. Extensive long segment colonic wall thickening extending from the distal transverse colon to the sigmoid indicative of a nonspecific colitis 3. Cholelithiasis 4. Partially visualized circumscribed elliptical 25 mm right breast mass Electronically signed by: Rm Patel M.D. 03/15/2019 10:59 PM Dictated: 03/15/192252 Transcribed: 03/15/192258 Hospital Course (1) Colitis: Possible related to viral gastroenteritis meet criteria for SIRS with elevated RR and leukocytosis Procalcitonin and POC lactate elevated CT abd/pelvis showed extensive long segment colonic wall thickening extending from the distal transverse colon to the sigmoid indicative of a nonspecific colitis Received IV Zosyn in the ER On IV Metronidazole and Rocephin for now WBC trending down to 20K Blood cx no growth and urine cx grew pinpoint growth Diet advanced as tolerated Denies any diarrhea and nausea Monitor electrolytes Pt would like to go home today. I encouraged her to stay for one more night that we can trend the WBC and follow on urine cx, but refused to stay in the hospital Will change antibiotic to Cipro and flagyl PO forx5 days Will check CBC within 1 week to monitor WBC Pt was advised if her symptoms reoccur or develop any fever to seek medical attention Hematuria One episode of hematuria Possible related to anticoagulant since pt on plavix, aspirin and heparin subq was given Heparin subq was discontinued Hemoglobin stable Continue monitor closely HTN BP stable Continue metoprolol, Losatan and amlodipine Breast mass Last Mammogram in 2018 showed scattered fibroglandular densities. No new dominant mass or clustered microcalcifications suspicious for malignancy. 2.5 cm focal asymmetry upper outer quadrant of the right breast proved to be a cyst noted on previous ultrasound. Continue outpatient follow up Stable Lung Nodule CT on 05/2018 showed multiple small lung nodules Will need one year follow-up chest CT recommended DVT px Heparin subq discontinued due to hematuria On SCDs CODE STATUS FULL CODE Disposition Will discharge home today Total Time Total Time Spent Total Time Spent (In Minutes): 35 minutes Total Time Includes: Examination of the Patient, Discharge Planning, Medication Reconciliation, Communication With Other Providers and Other Discharge Plan Discharge Items Patient Disposition: Home - Self-Care Reason For Visit: RESP FAILURE, COLITIS Discharge Diagnosis: Colitis Hematuria HTN Breast mass Lung Nodule Activity: Resume your previous activity Activity Comment: as tolerated Non-emergency contact: Primary Care Provider Call non-emergency contact if: you have any medication questions, your symptoms worsen and your temperature is above 101 Follow-up/Referrals: Abhijit Rawls MD [Primary Care Provider] - Diet: Low Fat Addtl Attending Provider Instructions: Follow up with your primary care provider within 1 week (office will call you for the appointment) Check CBC in 1 week to monitor WBC Complete the course of the antibiotics with Flagyl and Cipro Advance diet slowly as tolerated Outpatient CT and mammogram follow up Seek medical attention if you develop any fever or your symptoms worsening Pending Studies at Discharge: Yes Studies:: Urine culture Stand-Alone Forms: My [facility] Medications and DC Order Prescriptions: New metronidazole 500 mg Tablet 500 mg PO TID 5 Days Qty: 15 RF: 0 ciprofloxacin HCl 500 mg Tablet 500 mg PO BID 5 Days Qty: 10 RF: 0 Continued tramadol 50 mg Tablet 50 mg PO BID PRN (Reason: Pain) RF: 0 clopidogrel [Plavix] 75 mg Tablet 75 mg PO DAILY RF: 0 diclofenac sodium [Voltaren] 1 % Gel 2 g TOPICAL BID RF: 0 pantoprazole [Protonix] 40 mg Tablet,Delayed Release (Dr/Ec) 40 mg PO BID RF: 0 cyclobenzaprine 5 mg Tablet 5 mg PO TID PRN (Reason: muscle spasms) RF: 0 amlodipine 5 mg Tablet 5 mg PO DAILY RF: 0 losartan [Cozaar] 100 mg Tablet 100 mg PO DAILY RF: 0 rosuvastatin [Crestor] 5 mg Tablet 5 mg PO DIRECTED RF: 0 sertraline [Zoloft] 25 mg Tablet 25 mg PO DAILY RF: 0 Prempro 0.45-1.5 mg Tablet 1 tab PO DAILY RF: 0 ezetimibe [Zetia] 10 mg Tablet 10 mg PO DAILY RF: 0 metoprolol tartrate 25 mg Tablet 25 mg PO QAM RF: 0 metoprolol tartrate 25 mg Tablet 12.5 mg PO QPM RF: 0 albuterol sulfate 2.5 mg /3 mL (0.083 %) Solution For Nebulization 2.5 mg INHALATION Q4H PRN (Reason: sob) RF: 0 fexofenadine [Sil Allergy] 180 mg Tablet 180 mg PO DAILY PRN (Reason: Allergy Symptoms) RF: 0 aspirin 81 mg Tablet,Delayed Release (Dr/Ec) 81 mg PO DAILY RF: 0 nitroglycerin 0.4 mg Tablet, Sublingual 0.4 mg sublingual DIRECTED PRN (Reason: Chest Pain) RF: 0 Discharge Orders: Discharge Order (Routine); Ordered 03/17/19 Ordered By: Chris Eisenberg Admission Data Admit Date/Time: 03/16/19 00:39 Attending Provider: Chris Eisenberg Admit Provider: Gilbert Barbour Primary Care Provider: Abhijit Rawls Other Providers: Gilbert Barbour Other Interventions: Discharge Summary Assessment (RN) Last Done: 03/17/19 16:41 DC Date/Time DO NOT enter until pt leaves facility: 03/17/19 17:31
== END 2019-03-17 17:31 | disposition home or self-care (01) | DRG 392 ==
LOC: ED 20:41 → 2N 03-16 00:39

== ENCOUNTER 2022-09-03 23:34 | Inpatient (IN) ==
[2022-09-03] MEDS ORDERED: ONDANSETRON INJ 2 MG/ML 2 ML VIAL IV STA (23:51)
--- NOTE | 2022-09-03 23:58 | Emergency Department Note ---
Impression & Plan Fracture of hip, right, closed Admit to the [facility] ED Provider Note NAME: SIDDHARTH AKINS AGE: 81 SEX: F ARRIVES VIA: Ambulance INFORMANT: Patient ED PROVIDER(S): Maritza Gold DO CHIEF COMPLAINT: Right hip pain PLAN: Disposition: Admit to the [facility] Condition: Stable MEDICAL DECISION MAKING: This is an 81-year-old female patient who presents to the emergency department after falling onto her right hip. She has obvious deformity to the right hip. She did not strike her head or lose consciousness. X-ray of the right hip confirms an impacted right femoral neck fracture. She has no other obvious injuries. Laboratory studies were unremarkable including no leukocytosis. No significant anemia. She has normal renal function. Urinalysis was questionable for an infection. The patient has no urinary symptoms. I discussed the case with the [facility] and they will evaluate for further management and consult orthopedics. Triage Nursing notes reviewed and agree with them. Vital Signs: reviewed and remarkable for mild hypertension Differential diagnosis: Contusion, fracture, dislocation ER treatment provided: school lunch monitor, twelve-lead EKG, morphine, Zofran Diagnostics interpreted by me: ECG: Normal sinus rhythm at a rate of [address] segment elevation or signs of ischemia. There is no ectopy. QTc is 415 ms. Cardiac Monitoring: Normal sinus rhythm at 72 Laboratory studies: See below Imaging studies: As per my independent interpretation Right hip x-ray: Impacted right femoral neck fracture Chest x-ray: No acute opacities or pulmonary infiltrates HPI: 81/F arrives for evaluation of fall. [facility] when she missed the last step and fell onto her right hip. She denies striking her head or losing consciousness. She had immediate pain in the right hip. She laid on the ground for approximately 10 minutes. EMS was called and she was transported here. PAST MEDICAL HISTORY:See Below PAST SURGICAL HISTORY:See Below FAMILY HISTORY:See Below SOCIAL HISTORY:See Below HOME MEDICATIONS:See list ALLERGIES:See list VITALS:See Below PHYSICAL EXAMINATION: HEENT: Head - normocephalic and atraumatic. Pupils are equal, round, and reactive to light. Extraocular eye muscles are intact, and sclera are anicteric. Nose - moist nasal mucosa without discharge. Mouth - moist buccal mucosa. Oropharynx is nonerythematous and there is no tonsillar exudate or edema noted. Neck: Supple; no pain to palpation over the posterior cervical spine Heart: Regular rate and rhythm. There is a normal S1 and S2 with no murmurs, clicks, or gallops appreciated. Lungs: Clear to auscultation bilaterally with no wheezes, rales, or rhonchi. Abdomen: Soft, completely nontender, nondistended, with good bowel sounds. There are no palpable pulsatile masses or hepatosplenomegaly. There is no guarding, rigidity, or rebound noted. Extremities: Obvious deformity over the right hip with contusion and edema noted. She has easily palpable distal pulses in both lower extremities. She does have some numbness to the right foot and move her toes. Skin: warm and dry with good turgor and no rashes. ED COURSE: Times/Reassessments: 2340: Patient was evaluated in room B9. A complete history and physical was performed. A twelve-lead EKG was obtained. An order was placed for continuous cardiac monitoring. The patient was in a normal sinus rhythm at a rate of 72. An IV lock was initiated and labs were drawn as above. The patient was given a dose of IV morphine and IV Zofran. The patient had an x-ray of the right hip as well as a chest x-ray. Maritza Gold DO Past Med/Surg History Medical History (Updated 09/04/22 @ 22:44 by Maritza Gold DO) CAD (coronary artery disease) Hyperlipidemia Hypertension Surgical History History of coronary artery stent placement Family History Other No pertinent family history in first degree relatives Social History Smoking Status: Former smoker Tobacco Type: Cigarettes Second Hand Exposure: No; Do You Dip or Chew Tobacco: No; Tobacco Cessation Education Requested by Patient: No Hx Alcohol Use: No Hx Substance Use: No Preferred Language: Hungarian Communication Ability: Effective Strike Off Machine Operator Required: No Beliefs That Will Affect Care: None Current Living Situation: Spouse Other Information That Helps Us Care for You: No Feels Safe at Home: Yes Safety Concerns: Feels Safe At This Time Assistive Devices: Denture - Upper, Denture - Lower and Glasses Allergies Allergies Allergy/AdvReac Type Severity Reaction Status Date / Time celecoxib Allergy Intermediate RASH Verified 03/15/19 23:40 Sulfa (Sulfonamide Allergy Intermediate RASH HIVES Verified 03/15/19 23:40 Antibiotics) Latex, Natural Rubber Allergy Mild Rash Verified 03/16/19 05:25 rofecoxib AdvReac Intermediate BLEEDING Verified 03/15/19 23:40 Home Meds Home Medications Medication Instructions Recorded Confirmed amlodipine 5 mg tablet 5 mg PO DAILY 03/15/19 09/04/22 aspirin 81 mg tablet,delayed 81 mg PO DAILY 03/15/19 09/04/22 release clopidogrel 75 mg tablet (Plavix) 75 mg PO QAM 03/15/19 09/04/22 conj estrogen-medroxyprogesterone 1 tab PO DAILY 03/15/19 09/04/22 0.45 mg-1.5 mg tablet (Prempro) ezetimibe 10 mg tablet (Zetia) 10 mg PO QAM 03/15/19 09/04/22 fexofenadine 180 mg tablet 180 mg PO DAILY PRN Allergy 03/15/19 09/04/22 (Sil Allergy) Symptoms losartan 100 mg tablet (Cozaar) 100 mg PO QAM 03/15/19 09/03/22 metoprolol tartrate 25 mg tablet 12.5 mg PO QAM 03/15/19 09/03/22 nitroglycerin 0.4 mg sublingual 0.4 mg sublingual DIRECTED PRN 03/15/19 09/04/22 tablet Chest Pain pantoprazole 40 mg tablet,delayed 40 mg PO BID 03/15/19 09/04/22 release (Protonix) rosuvastatin 5 mg tablet (Crestor) 5 mg PO 2XWK 03/15/19 09/04/22 tramadol 50 mg tablet 50 mg PO BID PRN Pain 03/15/19 09/03/22 escitalopram oxalate 10 mg tablet 10 mg PO DAILY 09/04/22 09/04/22 Previous Rx's Medication Instructions Recorded ondansetron 4 mg disintegrating 4 mg PO Q6H PRN nausea and 02/17/22 tablet vomiting #14 tabs Results & Data (ED) Vital Signs Vital Signs - 24 hr 09/03/22 23:57 09/04/22 02:05 Temperature 36.8 C Temperature Source Oral Pulse Rate 67 Pulse Rate [Radial] 77 Pulse Rhythm Regular Pulse Rhythm [Radial] Regular Pulse Strength Normal Pulse Strength [Radial] Normal Respiratory Rate 17 17 Respiratory Effort / Characteristics Non-Labored Spontaneous Non-Labored Spontaneous Respiratory Depth Normal Normal Respiratory Pattern Regular Regular Blood Pressure 184/87 H Blood Pressure [Left Arm] 184/87 H Blood Pressure Mean 119 Blood Pressure Mean [Left Arm] 119 Blood Pressure Position Lying Blood Pressure Position [Left Arm] Lying Pulse Oximetry 92 96 Oxygen Delivery Method Room Air Nasal Cannula Oxygen Flow Rate 2 Sepsis Recent Fever Within 48 Hours No Sepsis New/Unexplained Change in Mental Status N/A Sepsis Action Taken by Nursing No Action Required Laboratory Data 09/03/22 23:55 09/04/22 04:08 Lab Results 09/03/22 09/03/22 09/03/22 Range/Units 23:55 23:55 23:55 WBC 12.76 H (4.8-10.8) K/ul RBC 3.96 L (4.20-5.40) M/uL Hgb 11.7 L (12.0-16.0) g/dl Hct 35.2 L (37.0-47.0) % MCV 88.9 (80.0-100.0) fL MCH 29.5 (25.0-34.0) pg MCHC 33.2 (32.0-36.0) g/dL RDW Std Deviation 46.3 (36.4-46.3) fL RDW Coeff of Jamison 14.3 (11.5-14.5) % Plt Count 299 (130-400) K/uL MPV 11.1 (9.4-12.4) fL Immature Gran % (Auto) 0.7 % Neut % (Auto) 81.8 % Lymph % (Auto) 12.4 % Howell % (Auto) 4.1 % Eos % (Auto) 0.7 % Baso % (Auto) 0.3 % Neut # (Auto) 10.44 H (1.40-6.50) K/uL Lymph # (Auto) 1.58 (1.2-3.4) K/uL Howell # (Auto) 0.52 (0.11-0.59) K/uL Eos # (Auto) 0.09 (0-0.50) K/uL Baso # (Auto) 0.04 (0-0.2) K/uL Immature Gran # (Auto) 0.09 (0.01-0.20) K/uL PT 10.5 (9.0-12.0) Seconds INR 1.0 (0.9-1.1) APTT 23.7 (21.0-31.0) Seconds PTT Ratio 0.9 Sodium 136 (136-145) mmol/L Potassium TNP Chloride 104 (98-107) mmol/L Carbon Dioxide 25 (21-32) mmol/L Anion Gap 7 (3-11) BUN 18 (6-23) mg/dl Creatinine 1.01 (0.6-1.2) mg/dl Est Cr Clr Drug Dosing 40.2 ml/min Est GFR ( Amer) 60.0 ml/min Est GFR (Non-Af Amer) 51.8 ml/min BUN/Creatinine Ratio 17.8 (10-20) Glucose 88 (70-99(Fasting)) mg/dl Calcium 9.1 (8.6-10.3) mg/dl Total Bilirubin 0.6 (0.2-1.0) mg/dl AST TNP ALT 9 (7-52) U/L Alkaline Phosphatase 46 (34-104) U/L Total Protein 6.8 (6.0-8.3) gm/dl Albumin 3.9 (3.4-5.0) gm/dl Globulin 2.9 (2.5-4.0) gm/dl Albumin/Globulin Ratio 1.3 (0.9-2) Urine Color Urine Appearance (Clear) Urine pH (4.5-7.5) Ur Specific [place] (1.000-1.030) Urine Protein (Negative) Urine Glucose (UA) (Negative) Urine Ketones (Negative) Urine Blood (Negative) Urine Nitrite (Negative) Urine Bilirubin (Negative) Urine Urobilinogen (Negative) Ur Leukocyte Esterase (Negative) Urine WBC (Auto) (0-5) /hpf Urine RBC (Auto) (0-4) /hpf U Hyaline Cast (Auto) (0-5) /lpf U Epithel Cells (Auto) (0-5) /lpf Urine Bacteria (Auto) (Negative) SARS-CoV-2, RNA, NAAT (NEGATIVE) 09/04/22 09/04/22 Range/Units 00:31 02:20 WBC (4.8-10.8) K/ul RBC (4.20-5.40) M/uL Hgb (12.0-16.0) g/dl Hct (37.0-47.0) % MCV (80.0-100.0) fL MCH (25.0-34.0) pg MCHC (32.0-36.0) g/dL RDW Std Deviation (36.4-46.3) fL RDW Coeff of Jamison (11.5-14.5) % Plt Count (130-400) K/uL MPV (9.4-12.4) fL Immature Gran % (Auto) % Neut % (Auto) % Lymph % (Auto) % Howell % (Auto) % Eos % (Auto) % Baso % (Auto) % Neut # (Auto) (1.40-6.50) K/uL Lymph # (Auto) (1.2-3.4) K/uL Howell # (Auto) (0.11-0.59) K/uL Eos # (Auto) (0-0.50) K/uL Baso # (Auto) (0-0.2) K/uL Immature Gran # (Auto) (0.01-0.20) K/uL PT (9.0-12.0) Seconds INR (0.9-1.1) APTT (21.0-31.0) Seconds PTT Ratio Sodium (136-145) mmol/L Potassium Chloride (98-107) mmol/L Carbon Dioxide (21-32) mmol/L Anion Gap (3-11) BUN (6-23) mg/dl Creatinine (0.6-1.2) mg/dl Est Cr Clr Drug Dosing ml/min Est GFR ( Amer) ml/min Est GFR (Non-Af Amer) ml/min BUN/Creatinine Ratio (10-20) Glucose (70-99(Fasting)) mg/dl Calcium (8.6-10.3) mg/dl Total Bilirubin (0.2-1.0) mg/dl AST ALT (7-52) U/L Alkaline Phosphatase (34-104) U/L Total Protein (6.0-8.3) gm/dl Albumin (3.4-5.0) gm/dl Globulin (2.5-4.0) gm/dl Albumin/Globulin Ratio (0.9-2) Urine Color Yellow Urine Appearance Clear (Clear) Urine pH 5.0 (4.5-7.5) Ur Specific [place] 1.021 (1.000-1.030) Urine Protein Negative (Negative) Urine Glucose (UA) Negative (Negative) Urine Ketones Negative (Negative) Urine Blood Negative (Negative) Urine Nitrite Positive A (Negative) Urine Bilirubin Negative (Negative) Urine Urobilinogen Negative (Negative) Ur Leukocyte Esterase 1+ H (Negative) Urine WBC (Auto) 5-10 H (0-5) /hpf Urine RBC (Auto) 0-4 (0-4) /hpf U Hyaline Cast (Auto) 1-5 (0-5) /lpf U Epithel Cells (Auto) >30 H (0-5) /lpf Urine Bacteria (Auto) 4+ H (Negative) SARS-CoV-2, RNA, NAAT NEGATIVE (NEGATIVE) Administered Medications Aspirin (Aspirin 81 Mg Ectab) 81 mg PO DAILY [facility] Stop: 10/04/22 08:59 Last Admin: 09/04/22 08:28 Dose: 81 mg Documented By: JANY Clopidogrel Bisulfate (Clopidogrel Bisulfate 75 Mg Tab) [address] [facility] Stop: 10/04/22 08:59 Last Admin: 09/04/22 08:28 Dose: 75 mg Documented By: JANY Ezetimibe (Ezetimibe 10 Mg Tablet) [address] [facility] Stop: 10/04/22 08:59 Last Admin: 09/04/22 08:29 Dose: 10 mg Documented By: JANY Escitalopram Oxalate (Escitalopram Oxalate 10 Mg Tab) 10 mg PO DAILY [facility] Stop: 10/04/22 08:59 Last Admin: 09/04/22 08:27 Dose: 10 mg Documented By: JANY Ceftriaxone Sodium 2,000 mg/ (Dextrose) 70 mls @ 100 mls/hr IV Q24H [facility]; Protocol Stop: 09/14/22 05:59 Last Infusion: 09/04/22 06:23 Dose: 0 mls/hr Documented By: EKSae Admin: 09/04/22 05:41 Dose: 100 mls/hr Documented By: PETER Sodium Chloride (Nss 1000ml) 1,000 mls @ 100 mls/hr IV .Q10H JANETT Stop: 10/04/22 05:17 Last Admin: 09/04/22 15:46 Dose: 100 mls/hr Documented By: Infusion: 09/04/22 15:41 Dose: 100 mls/hr Documented By: Admin: 09/04/22 05:41 Dose: 100 mls/hr Documented By: EKF Metoprolol Tartrate (Metoprolol Tartrate 25 Mg Tab) 12.5 mg PO QAM JANETT Stop: 10/04/22 08:59 Last Admin: 09/04/22 08:25 Dose: 12.5 mg Documented By: JANY Morphine Sulfate (Morphine Sulfate 4 Mg/Ml 1 Ml Carp\Vial) 3 mg IV Q3H PRN PRN Reason: Pain Stop: 09/18/22 05:17 Last Admin: 09/04/22 20:07 Dose: 3 mg Documented By: Admin: 09/04/22 08:38 Dose: 3 mg Documented By: Admin: 09/04/22 06:02 Dose: 3 mg Documented By: EKF Pantoprazole Sodium (Pantoprazole 40 Mg Tab) 40 mg PO BID JANETT Stop: 10/04/22 08:59 Last Admin: 09/04/22 20:10 Dose: 40 mg Documented By: Admin: 09/04/22 08:28 Dose: 40 mg Documented By: JANY Tramadol HCl (Tramadol Hcl 50 Mg Tablet) 50 mg PO BID PRN PRN Reason: Pain Stop: 10/04/22 05:17 Last Admin: 09/04/22 17:12 Dose: 50 mg Documented By: JANY Discontinued Medications Morphine Sulfate (Morphine Sulfate 2 Mg/Ml Carp) 2 mg IV Q1H PRN PRN Reason: Moderate Pain (Rating 3,4,5,6) Stop: 09/17/22 23:50 Last Admin: 09/04/22 01:21 Dose: 2 mg Documented By: Admin: 09/04/22 00:12 Dose: 2 mg Documented By: NAY Ondansetron HCl (Ondansetron Inj 2 Mg/Ml 2 Ml Vial) 4 mg IV NOW STA Stop: 09/03/22 23:52 Last Admin: 09/04/22 00:12 Dose: 4 mg Documented By: NAY Imaging Data Radiologist's Impression: Hip/Pelvis X-Ray 09/03/22 23:53 XR hip RT 2V w pelvis CLINICAL HISTORY: hip pain TECHNIQUE: 2 views of the right hip and single frontal view of the pelvis were obtained. Comparison: None available at the time of this dictation. FINDINGS: There is no evidence of an acute fracture. Degenerative changes are seen in the hip joint. Vascular calcifications are noted. IMPRESSION: No evidence of acute osseous injury. ACT 112: Negative or not required by law. Electronically signed by: Arik Pulliam M.D. 09/04/2022 10:21 AM Discharge Plan Visit Data Chief Complaint: Hip Pain Stated Complaint: FALL ONTO rt HIP/ POSITIVE DEFORMITY ED Provider: Maritza Gold Discharge Problem: Fracture of hip, right, closed Patient Disposition: Admitted As Inpatient Discharge Instructions Interventions: ED Discharge Assessment Last Done: 09/04/22 05:01
[2022-09-04] MEDS: MoRPHine SULFATE 2 MG/ML CARP IV PRN ×2 (00:12→01:21)
[2022-09-04 00:42] LABS: Basophils # (auto) 0.04 K/uL (0-0.2); Basophils % (auto) 0.3 %; Eosinophils # (auto) 0.09 K/uL (0-0.50); Eosinophils % (auto) 0.7 %; Hematocrit (blood only) 35.2 % (37.0-47.0); Hemoglobin 11.7 g/dl (12.0-16.0); Immature Granulocytes # (auto) 0.09 K/uL (0.01-0.20); Immature Granulocytes % (auto) 0.7 %; Lymphocytes # (auto) 1.58 K/uL (1.2-3.4); Lymphocytes % (auto) 12.4 %; Mean Corpuscular Hemoglobin 29.5 pg (25.0-34.0); Mean Corpuscular Hgb Conc 33.2 g/dL (32.0-36.0); Mean Corpuscular Volume 88.9 fL (80.0-100.0); Mean Platelet Volume 11.1 fL (9.4-12.4); Monocytes # (auto) 0.52 K/uL (0.11-0.59); Monocytes % (auto) 4.1 %; Neutrophils # (auto) 10.44 K/uL (1.40-6.50); Neutrophils % (auto) 81.8 %; Platelet Count 299 K/uL (130-400); RDW Coefficient of Variation 14.3 % (11.5-14.5); RDW Standard Deviation 46.3 fL (36.4-46.3); Red Blood Count 3.96 M/uL (4.20-5.40); White Blood Count 12.76 K/ul (4.8-10.8)
[2022-09-04 00:50] LABS: Partial Thromboplastin Ratio 0.9; Partial Thromboplastin Time 23.7 Seconds (21.0-31.0); Prothrombin Time 10.5 Seconds (9.0-12.0)
[2022-09-04 01:06] LABS: Alanine Aminotransferase 9 U/L (7-52); Albumin Globulin Ratio 1.3 (0.9-2); Albumin Level 3.9 gm/dl (3.4-5.0); Alkaline Phosphatase 46 U/L (34-104); Anion Gap 7 (3-11); BUN Creatinine Ratio 17.8 (10-20); Bilirubin,Total 0.6 mg/dl (0.2-1.0); Blood Urea Nitrogen 18 mg/dl (6-23); Calcium 9.1 mg/dl (8.6-10.3); Carbon Dioxide 25 mmol/L (21-32); Chloride 104 mmol/L (98-107); Creatinine Clr Calc Pharmacy 40.2 ml/min; Est GFR (Non-African American) 51.8 ml/min; Globulin 2.9 gm/dl (2.5-4.0); Glucose 88 mg/dl (70-99(Fasting)); Sodium 136 mmol/L (136-145); Total Protein 6.8 gm/dl (6.0-8.3)
[2022-09-04 01:35] LABS: Appearance Urine Clear (Clear); Bacteria Urine Automated 4+ (Negative); Bilirubin Urine Negative (Negative); Blood Urine Negative (Negative); Color Urine Yellow; Epithelial Cell Urine Auto >30 /lpf (0-5); Glucose Urine UA Negative (Negative); Ketones Urine Negative (Negative); Leukocyte Esterase Urine 1+ (Negative); Nitrite Urine Positive (Negative); Protein Urine Negative (Negative); RBC Urine Automated 0-4 /hpf (0-4); Specific Gravity Urine 1.021 (1.000-1.030); Urobilinogen Urine Negative (Negative)
[2022-09-04 04:38] LABS: Potassium 4.3 mmol/L (3.5-5.1)
[2022-09-04] MEDS ORDERED: NITROGLYCERIN SL 0.4 MG/TAB TAB SL PRN (05:18)
[2022-09-04] MEDS ORDERED: FEXOFENADINE HCL 180 MG TAB PO PRN (05:18)
[2022-09-04] MEDS ORDERED: ALBUTEROL HFA 8 GM INHALER INH PRN (05:18)
[2022-09-04] MEDS ORDERED: ONDANSETRON INJ 2 MG/ML 2 ML VIAL IV PRN (05:18)
[2022-09-04] MEDS: SODIUM CHLORIDE 0.9% 1000ML 1,000 ML IV SCH ×2 (05:41→15:46)
[2022-09-04] MEDS: cefTRIAXone SODIUM 2,000 MG in DEXTROSE 5% 50 ML IV SCH (05:41)
--- NOTE | 2022-09-04 05:45 | History and Physical Report ---
DATE OF ADMISSION: 09/03/2022. CHIEF COMPLAINT: Status post fall and right hip fracture. HISTORY OF PRESENT ILLNESS: An 81-year-old female with past medical history significant for hyperlipidemia, COPD, multiple lung nodules on CT scan, history of CAD, hypertension, GERD, chronic kidney disease stage III, generalized osteoarthritis, restless legs syndrome, depression, history of melanoma in situ, right thigh; CAD status post stent, history of tobacco use, seasonal allergies, she has very poor vision, but able to ambulate without support at home, comes because of fall. The patient was going to [facility], where there are 2 steps, she missed last step and fell on the right side, did not hit her head, no loss of consciousness, could not able to get up, was brought in here. is in the room. The patient is somewhat hard of hearing. Imaging studies show right hip fracture. Currently, pain is under control. Denies any chest pain, no shortness of breath, no nausea, no abdominal pain. Normal bowel and bladder movements. No fevers, no cough, no headache, no earache, no runny nose, no sore throat. Hemodynamics are stable. ALLERGIES: CELECOXIB, SULFA, LATEX, ROFECOXIB. PAST MEDICAL HISTORY: As mentioned above. PAST SURGICAL HISTORY: Right knee tibial plateau arthroplasty, breast lesion excision, left heart catheterization, colonoscopy, dental surgery, injection of the eye drugs, ligation of oviducts, melanoma of the right thigh removed, appendectomy, right oophorectomy, revision of the left knee joint. MEDICATIONS: The patient is on amlodipine 5 mg p.o. daily, aspirin 81 mg p.o. daily, Plavix 75 mg p.o. daily, Lexapro 10 mg p.o. daily, Zetia 10 mg p.o. a.m., Sil 180 mg p.o. daily p.r.n., Cozaar 100 mg p.o. a.m., metoprolol tartrate 12.5 mg p.o. a.m., nitroglycerin 0.4 mg sublingual p.r.n., Zofran 4 mg p.o. q. 6 hours p.r.n., Protonix 40 mg p.o. b.i.d., Prempro 1 tablet p.o. daily, Crestor 5 mg p.o. 2 times a week, tramadol 50 mg p.o. b.i.d. p.r.n. FAMILY HISTORY: Significant for father had pancreatic cancer, mother has heart disorder; brother has hypertension, heart disorder; mother had stroke. SOCIAL HISTORY: , lives with her . Smokes quarter pack a day for 15 years. No alcohol use. No drug use. REVIEW OF SYSTEMS: As per HPI. Rest of the review of systems is negative. PHYSICAL EXAMINATION: GENERAL: The patient is old and frail, not in acute distress. VITAL SIGNS: Temperature 36.8, pulse 77, respiratory rate 17, blood pressure 184/87, oxygen 96% on 2 liters. HEENT: Pupils equal, round and reactive to light. Oral mucosa dry. NECK: No JVD. No neck masses. CARDIOVASCULAR: S1 and S2 heard. Regular rate and rhythm. No murmur, no gallop. RESPIRATORY SYSTEM: Normal AP diameter. No accessory muscle use. No wheezing, no crackles. ABDOMEN: Soft, bowel sounds present, nontender, no distention. CENTRAL NERVOUS SYSTEM: Alert and oriented. Hard of hearing. No facial droop. Speech is clear. Obeys simple commands. Moves extremities. EXTREMITIES: Right lower extremity is slightly shortened. No edema, no erythema seen. LABORATORY DATA: WBC 12.7, hemoglobin 11.7, hematocrit 35.2, platelets 299. PT 10.5, INR 1, APTT 23.7. Sodium 136, chloride 104, CO2 of 25, BUN 18, creatinine 1.01, serum glucose 88, calcium 9.1, total bilirubin 0.6, ALT 9, alkaline phosphatase 46. Urinalysis positive for nitrite, +1 leukocyte esterase, +4 bacteria. SARS-CoV-2 rapid test negative. IMAGING DATA: Hip and pelvic x-ray, right hip fracture. EKG: Normal sinus rhythm with rate of 69, nonspecific T-wave abnormalities. ASSESSMENT AND PLAN: This is an 81-year-old female who presents with fall and found to have right hip fracture. 1. Mechanical fall, right hip fracture. Ambulates okay at home. EKG seems to be okay. We will get a chest x-ray. If chest x-ray looks okay, the patient should be at acceptable risk to proceed with surgery. We will keep her n.p.o., IV fluids, IV antiemetics, IV pain medications p.r.n. Consult orthopedics. 2. History of coronary artery disease, status post stent. Continue aspirin, Plavix, Zetia, beta cecilia, statin. We will monitor in the hospital. 3. History of chronic obstructive pulmonary disease. Currently seems to be okay. Not on any inhalers at home. We will place her on albuterol p.r.n. 4. History of hyperlipidemia. On statin and Zetia. 5. History of hypertension. On metoprolol, amlodipine. Will hold Cozaar until procedure is done. We will give IV hydralazine p.r.n. Monitor the blood pressure. 6. Depression. On Lexapro. 7. Gastroesophageal reflux disease. On Protonix. 8. History of chronic kidney disease, stage III. Presently, creatinine of 1. We will follow the labs. 9. UTI could be contributed to fall. Started on Rocephin. Will follow cultures. 10. Deep venous thrombosis prophylaxis. No anticoagulation in anticipation of procedure and could not place SCDs because of the hip fracture. Further anticoagulation as per Orthopedics. DISPOSITION: Closely monitor in the medical floor. PT/OT prior to discharge. Social service to help with discharge planning. Level 1 full code. Job ID: [id number] [facility]
[2022-09-04] MEDS: MoRPHine SULFATE 4 MG/ML 1 ML CARP\\VIAL IV PRN ×3 (06:02→20:07)
[2022-09-04] MEDS: METOPROLOL TARTRATE 25 MG TAB PO SCH (08:25)
[2022-09-04] MEDS: ESCITALOPRAM OXALATE 10 MG TAB PO SCH (08:27)
--- NOTE | 2022-09-04 08:27 | XRay Report ---
XR chest 1V portable CLINICAL HISTORY: pre op TECHNIQUE: Single frontal radiograph of the chest was obtained. Comparison: Comparison is made to chest radiograph 03/16/2019 FINDINGS: No lines and tubes are seen. Cardiomegaly is noted. The aortic arch is calcified. The lungs are clear . No evidence of pleural effusion or pneumothorax. IMPRESSION: No acute chest disease. ACT 112: Negative or not required by law. Electronically signed by: Arik Pulliam M.D. 09/04/2022 8:24 AM
[2022-09-04] MEDS: CLOPIDOGREL BISULFATE 75 MG TAB PO SCH (08:28)
[2022-09-04] MEDS: ASPIRIN 81 MG ECTAB PO SCH (08:28)
[2022-09-04] MEDS: PANTOprazole 40 MG TAB PO SCH ×2 (08:28→20:10)
[2022-09-04] MEDS: EZETIMIBE 10 MG TABLET PO SCH (08:29)
--- NOTE | 2022-09-04 08:42 | Electrocardiogram Report ---
Test Reason : Blood Pressure : / mmHG Vent. Rate : 069 BPM Atrial Rate : 069 BPM P-R Int : 154 ms QRS Dur : 076 ms QT Int : 388 ms P-R-T Axes : 081 048 057 degrees QTc Int : 415 ms Poor data quality, interpretation may be adversely affected Normal sinus rhythm Poor R wave progression, consider anterior VA vs. lead placement vs. LVH Abnormal ECG When compared with ECG of 15-MAR-2019 21:56, No significant change Confirmed by Abhijit Young ([id number]) on 09/04/2022 8:42:31 AM Referred By: REFERRED SELF Confirmed By:Abhijit Young
--- NOTE | 2022-09-04 10:22 | XRay Report ---
XR hip RT 2V w pelvis CLINICAL HISTORY: hip pain TECHNIQUE: 2 views of the right hip and single frontal view of the pelvis were obtained. Comparison: None available at the time of this dictation. FINDINGS: There is no evidence of an acute fracture. Degenerative changes are seen in the hip joint. Vascular c alcifications are noted. IMPRESSION: No evidence of acute osseous injury. ACT 112: Negative or not required by law. Electronically signed by: Arik Pulliam M.D. 09/04/2022 10:21 AM
--- NOTE | 2022-09-04 15:18 | Orthopedic Consultation ---
Date of Service September 04, 2022 Assessment & Plan (1) Displaced fracture of right femoral neck: I discussed the her the diagnosis and the treatment options. I recommended an anterior right hip hemiarthroplasty. She understands the risk, benefits, and alternatives to procedure elected to proceed. Questions were answered. She was placed on the operating room schedule for tomorrow. She will be n.p.o. after midnight tonight. History of Present Illness Reason for Consultation: Right femoral neck fracture. Requesting Physician: . Attending Physician: Kody Clark MD Gabriela is a pleasant 81-year-old female who normally ambulates without assistance. She was walking into her garage today when she fell. She had right hip pain. She was brought to the emergency room and radiographs demonstrated a displaced right femoral neck fracture. She was admitted to the hospitalist service and orthopedics was consulted to evaluate and treat.. Allergies Allergy/AdvReac Type Severity Reaction Status Date / Time celecoxib Allergy Intermediate RASH Verified 03/15/19 23:40 Sulfa (Sulfonamide Allergy Intermediate RASH HIVES Verified 03/15/19 23:40 Antibiotics) Latex, Natural Rubber Allergy Mild Rash Verified 03/16/19 05:25 rofecoxib AdvReac Intermediate BLEEDING Verified 03/15/19 23:40 Home Medications Medication Instructions Recorded Confirmed Type amlodipine 5 mg tablet 5 mg PO DAILY 03/15/19 09/04/22 History aspirin 81 mg tablet,delayed 81 mg PO DAILY 03/15/19 09/04/22 History release clopidogrel 75 mg tablet (Plavix) 75 mg PO QAM 03/15/19 09/04/22 History conj estrogen-medroxyprogesterone 1 tab PO DAILY 03/15/19 09/04/22 History 0.45 mg-1.5 mg tablet (Prempro) ezetimibe 10 mg tablet (Zetia) 10 mg PO QAM 03/15/19 09/04/22 History fexofenadine 180 mg tablet 180 mg PO DAILY PRN Allergy 03/15/19 09/04/22 History (Sil Allergy) Symptoms losartan 100 mg tablet (Cozaar) 100 mg PO QAM 03/15/19 09/03/22 History metoprolol tartrate 25 mg tablet 12.5 mg PO QAM 03/15/19 09/03/22 History nitroglycerin 0.4 mg sublingual 0.4 mg sublingual DIRECTED PRN 03/15/19 09/04/22 History tablet Chest Pain pantoprazole 40 mg tablet,delayed 40 mg PO BID 03/15/19 09/04/22 History release (Protonix) rosuvastatin 5 mg tablet (Crestor) 5 mg PO 2XWK 03/15/19 09/04/22 History tramadol 50 mg tablet 50 mg PO BID PRN Pain 03/15/19 09/03/22 History ondansetron 4 mg disintegrating 4 mg PO Q6H PRN nausea and 02/17/22 09/04/22 Rx tablet vomiting #14 tabs escitalopram oxalate 10 mg tablet 10 mg PO DAILY 09/04/22 09/04/22 History Past Med/Surg History Medical History (Updated 09/04/22 @ 15:18 by Michele Devries DO) CAD (coronary artery disease) Hyperlipidemia Hypertension Surgical History History of coronary artery stent placement Family History Other No pertinent family history in first degree relatives Social History Smoking Status: Former smoker Tobacco Type: Cigarettes Second Hand Exposure: No; Do You Dip or Chew Tobacco: No; Tobacco Cessation Education Requested by Patient: No Hx Alcohol Use: No Hx Substance Use: No Preferred Language: Greek Communication Ability: Effective Centralized Traffic Control Operator Required: No Beliefs That Will Affect Care: None Current Living Situation: Spouse Other Information That Helps Us Care for You: No Feels Safe at Home: Yes Safety Concerns: Feels Safe At This Time Assistive Devices: Denture - Upper, Denture - Lower and Glasses Review of Systems All systems reviewed & are unremarkable except as noted in HPI & below. Physical Exam On physical examination of the right hip, her right leg is slightly shortened and externally rotated. She has active motion of her ankle.. Constitutional WD/WN, vitals as above Eyes PERRL, conjunctivae normal, anicteric sclerae ENMT external ear and nose normal, oropharynx normal Neck trachea midline, no thyromegaly Respiratory normal respiratory effort, lungs clear to auscultation Cardiovascular RRR, no murmur, no edema Gastrointestinal (Abdomen) normal bowel sounds, soft, nontender, no hepatosplenomegaly Skin no rashes, warm and dry Psychiatric A+Ox3, euthymic affect Results & Data Results & Data Laboratory Results . Diagnostic Findings X-rays of the right hip show a displaced right femoral neck fracture.. PG Care Time/CCT Total # of Minutes Spent Total Time Spent with Patient: Total time spent is greater than 50% in coordination of care (as documented) at patient's floor/unit and/or counseling patient: Coding Level of Care Code 81647 IN/OBS CONSULT LVL 4,60M (57 - DECISION FOR SURGERY) Diagnoses Displaced fracture of right femoral neck S72.001A
[2022-09-04] MEDS: traMADol HCL 50 MG TABLET PO PRN (17:12)
[2022-09-05] MEDS: SODIUM CHLORIDE 0.9% 1000ML 1,000 ML IV SCH ×2 (01:20→10:55)
[2022-09-05] MEDS: MoRPHine SULFATE 4 MG/ML 1 ML CARP\\VIAL IV PRN ×4 (02:07→23:40)
[2022-09-05] MEDS: cefTRIAXone SODIUM 2,000 MG in DEXTROSE 5% 50 ML IV SCH (04:59)
[2022-09-05 06:25] LABS: Basophils # (auto) 0.04 K/uL (0-0.2); Basophils % (auto) 0.3 %; Eosinophils # (auto) 0.13 K/uL (0-0.50); Eosinophils % (auto) 0.9 %; Hematocrit (blood only) 33.1 % (37.0-47.0); Hemoglobin 10.9 g/dl (12.0-16.0); Immature Granulocytes # (auto) 0.06 K/uL (0.01-0.20); Immature Granulocytes % (auto) 0.4 %; Lymphocytes # (auto) 1.12 K/uL (1.2-3.4); Lymphocytes % (auto) 7.8 %; Mean Corpuscular Hemoglobin 29.4 pg (25.0-34.0); Mean Corpuscular Hgb Conc 32.9 g/dL (32.0-36.0); Mean Corpuscular Volume 89.2 fL (80.0-100.0); Mean Platelet Volume 10.9 fL (9.4-12.4); Monocytes # (auto) 0.69 K/uL (0.11-0.59); Monocytes % (auto) 4.8 %; Neutrophils # (auto) 12.31 K/uL (1.40-6.50); Neutrophils % (auto) 85.8 %; Platelet Count 243 K/uL (130-400); RDW Coefficient of Variation 14.2 % (11.5-14.5); Red Blood Count 3.71 M/uL (4.20-5.40); White Blood Count 14.35 K/ul (4.8-10.8)
[2022-09-05 06:29] LABS: BUN Creatinine Ratio 17.3 (10-20); Calcium 8.4 mg/dl (8.6-10.3); Creatinine Clr Calc Pharmacy 54.8 ml/min; Est GFR (Non-African American) 74.2 ml/min; Magnesium 1.7 mg/dl (1.7-2.4); Potassium 4.1 mmol/L (3.5-5.1)
--- NOTE | 2022-09-05 07:29 | Hospitalist Progress Note ---
Date of Service September 05, 2022 Assessment & Plan (1) Fracture of hip, right, closed: Plan: This is an 81-year-old female who presents with fall and found to have right hip fracture. 1. Mechanical fall, right hip fracture. Received IV fluids, IV antiemetics, IV pain medications p.r.n. Now NPO Consulted orthopedics - recommended an anterior right hip hemiarthroplasty.Plan for surg. repair today (09/05/2022). 2. History of coronary artery disease, status post stent. Continue aspirin, Plavix, Zetia, beta cecilia, statin.May need to hold plavix prior to surgery, will need to re-start as soon as ok w/ the surgeon. We will monitor in the hospital. 3. History of chronic obstructive pulmonary disease. Not on any inhalers at home.placed her on albuterol p.r.n. on admision 4. History of hyperlipidemia. On statin and Zetia. 5. History of hypertension. On metoprolol, amlodipine. Will hold Cozaar until procedure is done. Will hold amlodipine as BP lower ysterday. We will give IV hydralazine p.r.n. Monitor the blood pressure. Receiving IVF 6. Depression. On Lexapro. 7. Gastroesophageal reflux disease. On Protonix. 8. History of chronic kidney disease, stage III. Presently, creatinine of 1. We will follow the labs. 9. UTI could be contributed to fall. Started on Rocephin. Will follow cultures. DVT prophylaxis. No anticoagulation in anticipation of procedure and could not place SCDs because of the hip fracture. Further anticoagulation as per Orthopedics. DISPOSITION:medical floor. PT/OT prior to discharge. Social service to help with discharge planning. Code: full code. Admission and Anticipated Discharge Date Admission Date: September 04, 2022 Subjective Pt seen in follow up of R hip fx Currently laying in bed, in no acute distress No fevers chills chest pain shortness of breath Continues to have pain in her right hip No abdominal pain nausea this morning Plan for surgical repair today Review of Systems Review of Systems: All systems reviewed & are unremarkable except as noted in Subjective Physical Exam Physical Exam: GENERAL: elderly thin frail F in NAD HEENT: NC/AT. poor vision (chronic) NECK: No JVD. No neck masses. CARDIOVASCULAR: S1 and S2 heard. Regular rate and rhythm. No murmur, no gallop. RESPIRATORY: Normal AP diameter. No accessory muscle use. No wheezing, no crackles. ABDOMEN: Soft, bowel sounds present, nontender, no distention. NEURO: Awake, alert and oriented. Hard of hearing. Poor vision (chronic). No facial droop. Speech is clear. Obeys simple commands. Moves extremities. EXTREMITIES: Right lower extremity is slightly shortened.R hip tender to palpation. Minimal edema to R hip,no erythema seen. Results & Data Results & Data Vital Signs (Past 12 Hours) Vital Signs Temp Pulse Resp BP Pulse Ox O2 Del Method O2 Flow Rate 09/04/22 19:58 37.0 C 78 18 154/81 H 95 Nasal Cannula 2 Laboratory Results 09/05/22 09/05/22 Range/Units 05:54 05:54 WBC 14.35 H (4.8-10.8) K/ul RBC 3.71 L (4.20-5.40) M/uL Hgb 10.9 L (12.0-16.0) g/dl Hct 33.1 L (37.0-47.0) % MCV 89.2 (80.0-100.0) fL MCH 29.4 (25.0-34.0) pg MCHC 32.9 (32.0-36.0) g/dL RDW Std Deviation 46.0 (36.4-46.3) fL RDW Coeff of Jamison 14.2 (11.5-14.5) % Plt Count 243 (130-400) K/uL MPV 10.9 (9.4-12.4) fL Immature Gran % (Auto) 0.4 % Neut % (Auto) 85.8 % Lymph % (Auto) 7.8 % Chambers % (Auto) 4.8 % Eos % (Auto) 0.9 % Baso % (Auto) 0.3 % Neut # (Auto) 12.31 H (1.40-6.50) K/uL Lymph # (Auto) 1.12 L (1.2-3.4) K/uL Chambers # (Auto) 0.69 H (0.11-0.59) K/uL Eos # (Auto) 0.13 (0-0.50) K/uL Baso # (Auto) 0.04 (0-0.2) K/uL Immature Gran # (Auto) 0.06 (0.01-0.20) K/uL Sodium 137 (136-145) mmol/L Potassium 4.1 (3.5-5.1) mmol/L Chloride 107 (98-107) mmol/L Carbon Dioxide 24 (21-32) mmol/L Anion Gap 6 (3-11) BUN 13 (6-23) mg/dl Creatinine 0.75 (0.6-1.2) mg/dl Est Cr Clr Drug Dosing 54.8 ml/min Est GFR ( Amer) 86.0 ml/min Est GFR (Non-Af Amer) 74.2 ml/min BUN/Creatinine Ratio 17.3 (10-20) Glucose 99 (70-99(Fasting)) mg/dl Calcium 8.4 L (8.6-10.3) mg/dl Phosphorus 3.0 (2.5-4.9) mg/dl Magnesium 1.7 (1.7-2.4) mg/dl Medications Administered Current Inpatient Medications Acetaminophen (Acetaminophen 325 Mg Tab) 650 mg PO Q4H PRN PRN Reason: pain/fever Stop: 10/04/22 05:17 Albuterol (Albuterol Hfa 8 Gm Inhaler) 2 puffs INH Q4H PRN PRN Reason: Shortness Of Breath Or Wheezing Stop: 10/04/22 05:17 Amlodipine Besylate (Amlodipine Besylate 5 Mg Tab) 5 mg PO DAILY [facility] Stop: 10/04/22 08:59 Aspirin (Aspirin 81 Mg Ectab) 81 mg PO DAILY [facility] Stop: 10/04/22 08:59 Last Admin: 09/04/22 08:28 Dose: 81 mg Clopidogrel Bisulfate (Clopidogrel Bisulfate 75 Mg Tab) [facility] Stop: 10/04/22 08:59 Last Admin: 09/04/22 08:28 Dose: 75 mg Ezetimibe (Ezetimibe 10 Mg Tablet) [facility] Stop: 10/04/22 08:59 Last Admin: 09/04/22 08:29 Dose: 10 mg Escitalopram Oxalate (Escitalopram Oxalate 10 Mg Tab) 10 mg PO DAILY [facility] Stop: 10/04/22 08:59 Last Admin: 09/04/22 08:27 Dose: 10 mg Fexofenadine HCl (Fexofenadine Hcl 180 Mg Tab) 180 mg PO DAILY PRN PRN Reason: Allergy Symptoms Stop: 10/04/22 05:17 Hydralazine HCl (Hydralazine Hcl 20 Mg/Ml Vial) 5 mg IV Q6H PRN PRN Reason: Hypertension Stop: 10/04/22 05:17 Ceftriaxone Sodium 2,000 mg/ (Dextrose) 70 mls @ 100 mls/hr IV Q24H [facility]; Protocol Stop: 09/14/22 05:59 Last Infusion: 09/05/22 05:38 Dose: Infused Sodium Chloride (Nss 1000ml) 1,000 mls @ 100 mls/hr IV .Q10H [facility] Stop: 10/04/22 05:17 Last Admin: 09/05/22 01:20 Dose: 100 mls/hr Metoprolol Tartrate (Metoprolol Tartrate 25 Mg Tab) 12.5 mg PO QAM [facility] Stop: 10/04/22 08:59 Last Admin: 09/04/22 08:25 Dose: 12.5 mg Morphine Sulfate (Morphine Sulfate 4 Mg/Ml 1 Ml Carp\Vial) 3 mg IV Q3H PRN PRN Reason: Pain Stop: 09/18/22 05:17 Last Admin: 09/05/22 02:07 Dose: 3 mg Nitroglycerin (Nitroglycerin Sl 0.4 Mg/Tab Tab) 0.4 mg SL UD PRN PRN Reason: Chest Pain Stop: 10/04/22 05:17 Ondansetron HCl (Ondansetron Inj 2 Mg/Ml 2 Ml Vial) 4 mg IV Q6H PRN PRN Reason: Nausea Stop: 10/04/22 05:17 Pantoprazole Sodium (Pantoprazole 40 Mg Tab) 40 mg PO BID [facility] Stop: 10/04/22 08:59 Last Admin: 09/04/22 20:10 Dose: 40 mg Rosuvastatin Calcium (Rosuvastatin Calcium 5 Mg Tab) 5 mg PO TuTh@0900 [facility] Stop: 10/06/22 08:59 Tramadol HCl (Tramadol Hcl 50 Mg Tablet) 50 mg PO BID PRN PRN Reason: Pain Stop: 10/04/22 05:17 Last Admin: 09/04/22 17:12 Dose: 50 mg
[2022-09-05] MEDS: PANTOprazole 40 MG TAB PO SCH ×2 (08:15→20:13)
[2022-09-05] MEDS: ESCITALOPRAM OXALATE 10 MG TAB PO SCH (08:16)
[2022-09-05] MEDS: METOPROLOL TARTRATE 25 MG TAB PO SCH (08:16)
[2022-09-05] MEDS: EZETIMIBE 10 MG TABLET PO SCH (08:16)
[2022-09-05] MEDS: ASPIRIN 81 MG ECTAB PO SCH (08:17)
[2022-09-05] MEDS ORDERED: MAGNESIUM SULFATE / D5W 1 GM/100 ML BAG IV ONE (09:38)
--- NOTE | 2022-09-05 10:35 | History & Physical Bridge Note ---
Date of Service September 05, 2022 History & Physical Bridge Note I have examined the patient, reviewed the History & Physical and in the interval since the performance of the History & Physical I have noted the following changes of clinical significance: no changes noted
[2022-09-05] MEDS ORDERED: BUPIVACAINE/EPINEPHRINE 0.25% 1:200,000 30 ML VIAL ONE (13:50)
[2022-09-05] MEDS ORDERED: fentaNYL citrate PF 100 MCG/2 ML VIAL ONE (14:02)
[2022-09-05] MEDS ORDERED: fentaNYL citrate PF 100 MCG/2 ML VIAL IV PRN (14:11)
[2022-09-05] MEDS ORDERED: ePHEDrine sulfate 50 MG/ML AMP IV PRN (14:11)
[2022-09-05] MEDS ORDERED: ONDANSETRON INJ 2 MG/ML 2 ML VIAL IV PRN (14:11)
[2022-09-05] MEDS ORDERED: ATROPINE SULFATE 0.1 MG/ML 10ML SYR IV PRN (14:11)
--- NOTE | 2022-09-05 14:11 | Anesthesiology Consultation ---
Date of Service September 05, 2022 Assessment & Plan Chart Review Chart Review: Acceptable Risk for Surgery and Patient NOT seen in Pre Admission Testing Consults Requested none ASA ASA3 Proposed Anesthesia Anesthesia Type: General Risk / Benefits Reviewed With: PT / POA / Parent / Guardian, Accepts Plan and Informed Consent Obtained History Surgery Operation Date: 09/05/22 08:25 Proposed Procedures p Right Bipolar Hip Arthroplasty Anterior - Michele Devries, Height/Weight Height: 5 ft 7 in Weight: 60 kg Allergies Allergy/AdvReac Type Severity Reaction Status Date / Time celecoxib Allergy Intermediate RASH Verified 03/15/19 23:40 Sulfa (Sulfonamide Allergy Intermediate RASH HIVES Verified 03/15/19 23:40 Antibiotics) Latex, Natural Rubber Allergy Mild Rash Verified 03/16/19 05:25 rofecoxib AdvReac Intermediate BLEEDING Verified 03/15/19 23:40 Medications Home Medications Medication Instructions Recorded Confirmed Last Taken amlodipine 5 mg tablet 5 mg PO DAILY 03/15/19 09/04/22 Unknown aspirin 81 mg tablet,delayed 81 mg PO DAILY 03/15/19 09/04/22 Unknown release clopidogrel 75 mg tablet (Plavix) 75 mg PO QAM 03/15/19 09/04/22 Unknown conj estrogen-medroxyprogesterone 1 tab PO DAILY 03/15/19 09/04/22 Unknown 0.45 mg-1.5 mg tablet (Prempro) ezetimibe 10 mg tablet (Zetia) 10 mg PO QAM 03/15/19 09/04/22 Unknown fexofenadine 180 mg tablet 180 mg PO DAILY PRN Allergy 03/15/19 09/04/22 Unknown (Sil Allergy) Symptoms losartan 100 mg tablet (Cozaar) 100 mg PO QAM 03/15/19 09/03/22 Unknown metoprolol tartrate 25 mg tablet 12.5 mg PO QAM 03/15/19 09/03/22 Unknown nitroglycerin 0.4 mg sublingual 0.4 mg sublingual DIRECTED PRN 03/15/19 09/04/22 Unknown tablet Chest Pain pantoprazole 40 mg tablet,delayed 40 mg PO BID 03/15/19 09/04/22 Unknown release (Protonix) rosuvastatin 5 mg tablet (Crestor) 5 mg PO 2XWK 03/15/19 09/04/22 Unknown tramadol 50 mg tablet 50 mg PO BID PRN Pain 03/15/19 09/03/22 Unknown ondansetron 4 mg disintegrating 4 mg PO Q6H PRN nausea and 02/17/22 09/04/22 Unknown tablet vomiting #14 tabs escitalopram oxalate 10 mg tablet 10 mg PO DAILY 09/04/22 09/04/22 Unknown Active Medications Generic Name Dose Route Start Last Admin Trade Name Freq PRN Reason Stop Dose Admin Aspirin 81 mg 09/04/22 09:00 09/05/22 08:17 Aspirin 81 Mg Ectab PO 10/04/22 08:59 81 mg DAILY JANETT Administration Clopidogrel Bisulfate 75 mg 09/04/22 09:00 09/04/22 08:28 Clopidogrel Bisulfate 75 Mg Tab PO 10/04/22 08:59 75 mg QAM JANETT Administration Ezetimibe 10 mg 09/04/22 09:00 09/05/22 08:16 Ezetimibe 10 Mg Tablet PO 10/04/22 08:59 10 mg QAM JANETT Administration Escitalopram Oxalate 10 mg 09/04/22 09:00 09/05/22 08:16 Escitalopram Oxalate 10 Mg Tab PO 10/04/22 08:59 10 mg DAILY JANETT Administration Ceftriaxone Sodium 2,000 mg/ 70 mls @ 100 mls/hr 09/04/22 06:00 09/05/22 05:38 Dextrose IV 09/14/22 05:59 Infused Q24H JANETT Infusion Protocol Sodium Chloride 1,000 mls @ 100 mls/hr 09/04/22 05:18 09/05/22 10:55 Nss 1000ml IV 10/04/22 05:17 100 mls/hr .Q10H JANETT Administration Metoprolol Tartrate 12.5 mg 09/04/22 09:00 09/05/22 08:16 Metoprolol Tartrate 25 Mg Tab PO 10/04/22 08:59 12.5 mg QAM JANETT Administration Morphine Sulfate 3 mg 09/04/22 05:18 09/05/22 08:17 Morphine Sulfate 4 Mg/Ml 1 Ml Carp\Vial IV 09/18/22 05:17 3 mg Q3H PRN Administration Pain Pantoprazole Sodium 40 mg 09/04/22 09:00 09/05/22 08:15 Pantoprazole 40 Mg Tab PO 10/04/22 08:59 40 mg BID JANETT Administration Tramadol HCl 50 mg 09/04/22 05:18 09/04/22 17:12 Tramadol Hcl 50 Mg Tablet PO 10/04/22 05:17 50 mg BID PRN Administration Pain NPO Date Last Intake of Fluids: 09/04/22 Time Last Intake of Fluids: 23:00 Date Last Intake of Solids: 09/04/22 Time Last Intake of Solids: 23:00 Past Medical History Medical History (Updated 09/04/22 @ 22:44 by Maritza Gold DO) CAD (coronary artery disease) Hyperlipidemia Hypertension Exercise / Class Metabolic Activity II 4-5 Yardwork/Stairs/Walk up hill Past Family History Family History Other No pertinent family history in first degree relatives Past Surgical History Surgical History History of coronary artery stent placement Past Anesthesia History No Hx of Anesthesia Complications and No Family Hx of Anesthesia Complications History of PONV No Hx of PONV and No Hx of Motion Sickness Social History Smoking Status: Former smoker tobacco type: cigarettes Do You Dip or Chew Tobacco: No Hx Alcohol Use: No Hx Substance Use: No substance use type: does not use Physical Exam Vital Signs Last Vital Signs Temp 37.3 C 09/05/22 13:42 Pulse 78 09/05/22 13:42 Resp 20 09/05/22 13:42 BP 197/86 H 09/05/22 13:42 Pulse Ox 94 09/05/22 13:42 O2 Del Method Nasal Cannula 09/05/22 13:42 O2 Flow Rate 2 09/05/22 13:42 ENMT Mouth: no dentition abnormality Thyromental Distance: > or= 3.5 Finger Breadths Mallampati Class: II Neck normal visual inspection Respiratory normal respiratory effort Auscultation: lungs clear to auscultation bilaterally Cardiovascular Rate/Rhythm: regular rate and regular rhythm Psychiatric Orientation: alert Testing Laboratory Results 09/05/22 05:54 09/05/22 05:54 PT 10.5 Seconds (9.0-12.0) 09/03/22 23:55 INR 1.0 (0.9-1.1) 09/03/22 23:55 APTT 23.7 Seconds (21.0-31.0) 09/03/22 23:55 Urine Color Yellow 09/04/22 00:31 Urine Appearance Clear (Clear) 09/04/22 00:31 Urine pH 5.0 (4.5-7.5) 09/04/22 00:31 Ur Specific [place] 1.021 (1.000-1.030) 09/04/22 00:31 Urine Protein Negative (Negative) 09/04/22 00:31 Urine Glucose (UA) Negative (Negative) 09/04/22 00:31 Urine Ketones Negative (Negative) 09/04/22 00:31 Urine Nitrite Positive (Negative) A 09/04/22 00:31 Ur Leukocyte Esterase 1+ (Negative) H 09/04/22 00:31 Urine WBC (Auto) 5-10 /hpf (0-5) H 09/04/22 00:31 Urine RBC (Auto) 0-4 /hpf (0-4) 09/04/22 00:31 U Hyaline Cast (Auto) 1-5 /lpf (0-5) 09/04/22 00:31 U Epithel Cells (Auto) >30 /lpf (0-5) H 09/04/22 00:31 Urine Bacteria (Auto) 4+ (Negative) H 09/04/22 00:31 09/04/22 00:31 Urine Culture - Preliminary Urine,Clean Catch Gram negative bacilli
[2022-09-05] MEDS ORDERED: TRANEXAMIC ACID / 0.7% NACL 1000MG/100ML BAG IV ONE (14:12)
[2022-09-05] MEDS ORDERED: ONDANSETRON INJ 2 MG/ML 2 ML VIAL ONE (15:58)
[2022-09-05] MEDS ORDERED: LIDOCAINE 2% MPF LOCAL 5 ML VIAL ONE (15:58)
[2022-09-05] MEDS ORDERED: NEOSTIGMINE METHYLSULFATE 1 MG/ML 10ML VIAL ONE (15:58)
[2022-09-05] MEDS ORDERED: GLYCOPYRROLATE 0.2 MG/ML VIAL ONE (15:58)
[2022-09-05] MEDS ORDERED: PROPOFOL IV EMULSION 10 MG/ML 20 ML VIAL IV ONE (15:58)
[2022-09-05] MEDS ORDERED: ROCURONIUM BROMIDE 10 MG/ML 5 ML VIAL IV ONE (15:58)
[2022-09-05] MEDS ORDERED: ESMOLOL HCL INJ 10 MG/ML 10ML VIAL IV ONE (15:58)
--- NOTE | 2022-09-05 16:09 | Operative Report ---
PG Post Operative Report Pre & Post Diagnosis Operation Date: 09/05/22 08:25 Pre-Op Diagnosis: Displaced fracture of right femoral neck. Post-Op Diagnosis: Displaced fracture of right femoral neck. I identified the patient and participated in the time-out.: Yes Procedure Operation Date: 09/05/22 08:25 Actual Procedures p Right Bipolar Hip Hemiarthroplasty Anterior(Right) - Michele Devries DO Surgeon Michele Devries DO Physicist Nuclear Michele Estrella PA-C Estimated Blood Loss 200 Findings Consistent with Post-Op Diagnosis Specimens Right femoral head Description of Procedure On September 05, 2022 Gabriela was brought down from her hospital room to the preoperative holding area. The operative extremity was identified and signed. She was taken back to the operative room and laid on the table in supine position. She was given general anesthesia. The right leg was then brought out through a Purist leg positioner. The right hip was then prepped and draped in sterile fashion. A timeout was done. The patient and the operative extremity was properly identified. An anterior approach was used. Dissection was taken down through the fascia. The rectus was retracted anteriorly and the tensor was retracted laterally. The capsule was exposed. The capsule was then incised and tagged for later repair. The femoral neck was then exposed. The femoral neck was resected. The head and neck were then removed. The acetabulum was then exposed. Time was spent clearing out any loose labral fragments. The femoral head measured a size 49. The proximal femur was then exposed. Sequential broaching up to a size 12 broach was used. A standard humeral neck was then placed. A 28 mm head with a +3.5 neck and a 49 mm shell was then placed on the femoral stem. The hip was reduced. Fluoroscopic images showed near anatomic alignment. The hip was then dislocated and trials were removed. The final size 12 cm LDFX stem was then c emented in place with Simplex cement. Once cement had hardened a 28 mm head with a +3.5 neck was then impacted into place. A 49 mm shell was then stabbed on the femoral head. The hip was reduced. Final fluoroscopic images showed near anatomic alignment. The wound was irrigated. The capsule was then closed with #1 Vicryl. Since the fascia was closed with #1 PDS. The skin was closed with 2-0 Vicryl and fam. She was then placed in a Silverlon dressing. She was then extubated and transferred to a hospital bed. She was taken to the postanesthesia care unit in stable condition. She tolerated the procedure well. Michele Estrella PA-C, was present for the entire procedure. He was critical for patient positioning, prepping, draping, retraction exposure, wound closure and application of sterile dressing. I attest to the content of the Intraoperative Record and any orders documented therein. Any exceptions are noted below.
--- NOTE | 2022-09-05 16:23 | Anesthesiology Progress Note ---
Date of Service September 05, 2022 Anesthesia Post Procedure Vital Signs Vital Signs: Temp Pulse Pulse Resp BP Pulse Ox O2 Del Method 09/05/22 16:20 83 22 156/92 H 98 Oxymask 09/05/22 16:10 90 25 H 162/90 H 100 Oxymask 09/05/22 16:04 36.3 C L 95 H 25 H 175/98 H 100 Oxymask 09/05/22 13:42 37.3 C 78 20 197/86 H 94 Nasal Cannula 09/05/22 07:44 37.0 C 89 16 140/80 95 Nasal Cannula 09/04/22 19:58 37.0 C 78 18 154/81 H 95 Nasal Cannula O2 Flow Rate 09/05/22 16:20 11 09/05/22 16:10 11 09/05/22 16:04 11 09/05/22 13:42 2 09/05/22 07:44 2 09/04/22 19:58 2 Pain Intensity Right Hip: Pain Intensity: 2 Transfer of Care Handoff Completed per policy Notes Mental Status: alert / awake / arousable Patient Amnestic to Procedure: Yes Nausea / Vomiting: adequately controlled Pain: adequately controlled Airway Patency, RR, SpO2: stable & adequate BP & HR: stable & adequate Hydration State: stable & adequate Anesthetic Complications: no major complications apparent
--- NOTE | 2022-09-05 16:35 | XRay Report ---
XR hip RT min 2V CLINICAL HISTORY: Post-Operative implant position COMPARISON: Right hip radiographs September 04, 2022. FINDINGS: Alignment of the right hip arthroplasty is anatomic. There is no periprosthetic fracture. No unexpected radiopaque foreign bodies are present. There are skin fam. IMPRESSION: Expected findings following right hip arthroplasty. ACT 112: Negative or not required by law. Electronically signed by: Darci Koroma M.D. 09/05/2022 4:33 PM
--- NOTE | 2022-09-05 16:45 | Fluoroscopy Report ---
FL hip RT 1V CLINICAL HISTORY: RT ANTERIOR HIP COMPARISON STUDY: Pelvis and right hip radiographs September 04, 2022. FLUOROSCOPY TIME: 9 seconds. EXPOSURE DOSE: 1.1357 mGy FLUOROSCOPIC IMAGES: 1 FINDINGS: Fluoroscopy was provided during anterior right hip arthroplasty. Hardware is intact. No fra ctures are identified by fluoroscopy. There are no unexpected radiopaque foreign bodies. IMPRESSION: Fluoroscopy provided during right hip arthroplasty. ACT 112: Negative or not required by law. Electronically signed by: Darci Koroma M.D. 09/05/2022 4:44 PM
[2022-09-05] MEDS: hydrALAZINE HCL 20 MG/ML VIAL IV PRN (20:18)
[2022-09-05] MEDS ORDERED: ceFAZolin 2000MG 2,000 MG/15 ML SYR IV SCH (22:00)
[2022-09-05] MEDS: traMADol HCL 50 MG TABLET PO PRN (22:06)
[2022-09-06 00:37] LABS: Hematocrit (blood only) 27.8 % (37.0-47.0); Hemoglobin 9.4 g/dl (12.0-16.0)
[2022-09-06] MEDS: HYDROmorphone INJ 0.5 MG/0.5 ML SYR IV PRN ×2 (00:46→07:35)
[2022-09-06] MEDS: SODIUM CHLORIDE 0.9% 1000ML 1,000 ML IV SCH ×2 (00:47→10:27)
[2022-09-06] MEDS: cefTRIAXone SODIUM 2,000 MG in DEXTROSE 5% 50 ML IV SCH (06:05)
[2022-09-06 06:34] LABS: Hematocrit (blood only) 29.7 % (37.0-47.0); Hemoglobin 9.8 g/dl (12.0-16.0); Mean Corpuscular Volume 87.9 fL (80.0-100.0); Mean Platelet Volume 11.1 fL (9.4-12.4); Platelet Count 217 K/uL (130-400); RDW Coefficient of Variation 13.8 % (11.5-14.5); RDW Standard Deviation 44.6 fL (36.4-46.3); Red Blood Count 3.38 M/uL (4.20-5.40); White Blood Count 14.22 K/ul (4.8-10.8)
--- NOTE | 2022-09-06 06:39 | Orthopedic Progress Note ---
Date of Service September 06, 2022 Assessment & Plan (1) Status post right hip replacement: Overall she is doing fairly well. She is not having too much pain in the right hip. She will be seen by physical therapy today for ambulation and range of motion exercises. She is on aspirin and Plavix for DVT prophylaxis. We will see how she does with physical therapy. She will likely require a rehab stay. Full orthopedic discharge instructions were placed in the discharge summary. Magdalena Ochoa was seen and examined at bedside this morning. She seems to be doing okay. She does not seem to be having too much pain in her right hip. She little drainage from the dressing yesterday that was reinforced (likely from her Plavix). She has no other complaints.. Review of Systems All systems reviewed & are unremarkable except as noted in HPI & below. Physical Exam On physical examination of the right hip, the dressing has been reinforced. Her leg is out in full extension. She has active dorsiflexion plantarflexion of her right ankle.. Results & Data Results & Data Laboratory Results . Diagnostic Findings Postoperative x-rays of the right hip show the prosthesis to be in anatomic alignment without any evidence of fracture, dislocation, or loosening. PG Care Time/CCT Total # of Minutes Spent Total Time Spent with Patient: Total time spent is greater than 50% in coordination of care (as documented) at patient's floor/unit and/or counseling patient: Coding Level of Care Code 42077 Post Operative Follow-Up Diagnoses Status post right hip replacement Z96.641
[2022-09-06 07:01] LABS: BUN Creatinine Ratio 19.4 (10-20); Calcium 8.3 mg/dl (8.6-10.3); Creatinine Clr Calc Pharmacy 66.3 ml/min; Est GFR (African American) 97.3 ml/min; Potassium 3.6 mmol/L (3.5-5.1)
[2022-09-06] MEDS: hydrALAZINE HCL 20 MG/ML VIAL IV PRN (07:36)
[2022-09-06] MEDS: CLOPIDOGREL BISULFATE 75 MG TAB PO SCH (09:08)
[2022-09-06] MEDS: amLODIPine BESYLATE 5 MG TAB PO SCH (09:08)
[2022-09-06] MEDS: METOPROLOL TARTRATE 25 MG TAB PO SCH (09:08)
[2022-09-06] MEDS: ASPIRIN 81 MG ECTAB PO SCH (09:08)
[2022-09-06] MEDS: ESCITALOPRAM OXALATE 10 MG TAB PO SCH (09:08)
[2022-09-06] MEDS: EZETIMIBE 10 MG TABLET PO SCH (09:08)
[2022-09-06] MEDS: ROSUVASTATIN CALCIUM 5 MG TAB PO SCH (09:09)
[2022-09-06] MEDS: PANTOprazole 40 MG TAB PO SCH ×2 (09:09→20:02)
[2022-09-06] MEDS: LOSARTAN POTASSIUM 50 MG TAB PO SCH (10:13)
[2022-09-06] MEDS: traMADol HCL 50 MG TABLET PO PRN (10:42)
[2022-09-06] MEDS: NICOTINE 14 MG/24 HR PATCH TD SCH (15:18)
--- NOTE | 2022-09-06 16:26 | Hospitalist Progress Note ---
Date of Service September 06, 2022 Assessment & Plan (1) Fracture of hip, right, closed: Plan: Mechanical fall Right hip fracture POD#1 right bipolar hip hemiarthroplasty Activity and wound care orders as per ortho Pain control with bowel regimen PT/OT Monitor H/H for acute blood loss anemia and transfuse blood products PRN EBL 200 cc Acute blood loss anemia Preop Hgb 11.7 --> 9.8 No indication for transfusion History of CAD S/p stenting On ASA, Plavix, statin, beta-cecilia Appears stable HTN On amlodipine, losartan, metoprolol Losartan held preoperatively, resumed this a.m. due to elevated BP. Home doses of amlodipine and metoprolol continued. BP improved with pain control and resumed losartan. GERD Continue PPI Depression Continue home meds DVT prophylaxis On ASA and Plavix --acceptable DVT prophylaxis as per Ortho Dispo-likely needs rehab, case management following Admission and Anticipated Discharge Date Admission Date: September 04, 2022 Supervising Physician Co-Signing Physician Notes Patient seen and examined by me, care coordinated with JEANETTE Talavera, please refer to her note above for further detail. Patient is status post right hip fracture surgical repair, currently laying in bed, in no acute distress. Patient seen working with occupational therapist, was having some difficulties, and after her session, she was quite exhausted. She is awake alert oriented answering questions appropriately. Otherwise voices no complaints. Has right hip pain, and ecchymosis, dressings applied to right hip postsurgically. ice also applied. Denies any fevers chills chest pain shortness of breath abdominal pain. Lungs are clear to auscultation. Heart sounds regular. Abdomen soft nontender nondistended. She is moving extremities. BP elevated - losartan restarted, will adjust as needed. Continue to closely monitor, continue PT OT. MD Amber Subjective Follow-up for right hip fracture s/p repair. Patient resting in bed, offers no complaints. Reports pain is well controlled. No chest pain or shortness of breath. Denies abdominal pain or nausea. Review of Systems Review of Systems: All systems reviewed & are unremarkable except as noted in Subjective Physical Exam Constitutional: WD/WN, vitals as above Eyes: Legally blind Respiratory: normal respiratory effort, lungs clear to auscultation Cardiovascular: Rate/Rhythm: regular rate and regular rhythm Vessels: normal peripheral pulses Extremities: no edema Gastrointestinal (Abdomen): Percussion/Palpation: abdomen soft; abdomen nontender Musculoskeletal: S/p right hip surgery, dressing CDI, CSM checks intact RLE Skin: no rashes, warm and dry Neurologic: no focal motor deficits Psychiatric: A+Ox3, euthymic affect Results & Data Results & Data Vital Signs (Past 12 Hours) Vital Signs Temp Pulse Resp BP Pulse Ox O2 Del Method O2 Flow Rate 09/06/22 15:06 36.5 C 83 16 130/68 93 Nasal Cannula 2 09/06/22 07:55 96 H 131/69 09/06/22 07:14 36.6 C 95 H 18 189/80 H 97 Nasal Cannula 2 Laboratory Results Short CBC 09/06/22 09/06/22 Range/Units 00:22 06:11 WBC 14.22 H (4.8-10.8) K/ul Hgb 9.4 L 9.8 L (12.0-16.0) g/dl Hct 27.8 L 29.7 L (37.0-47.0) % Plt Count 217 (130-400) K/uL BMP 09/06/22 06:11 Sodium 136 Potassium 3.6 Chloride 106 Carbon Dioxide 23 BUN 12 Creatinine 0.62 Glucose 116 H Calcium 8.3 L Medications Administered Current Inpatient Medications Acetaminophen (Acetaminophen 325 Mg Tab) 650 mg PO Q4H PRN PRN Reason: pain/fever Stop: 10/04/22 05:17 Albuterol (Albuterol Hfa 8 Gm Inhaler) 2 puffs INH Q4H PRN PRN Reason: Shortness Of Breath Or Wheezing Stop: 10/04/22 05:17 Amlodipine Besylate (Amlodipine Besylate 5 Mg Tab) 5 mg PO DAILY [facility] Stop: 10/04/22 08:59 Last Admin: 09/06/22 09:08 Dose: 5 mg Aspirin (Aspirin 81 Mg Ectab) 81 mg PO DAILY [facility] Stop: 10/04/22 08:59 Last Admin: 09/06/22 09:08 Dose: 81 mg Clopidogrel Bisulfate (Clopidogrel Bisulfate 75 Mg Tab) [facility] [place]: 10/04/22 08:59 Last Admin: 09/06/22 09:08 Dose: 75 mg Ezetimibe (Ezetimibe 10 Mg Tablet) [facility] [place] Stop: 10/04/22 08:59 Last Admin: 09/06/22 09:08 Dose: 10 mg Escitalopram Oxalate (Escitalopram Oxalate 10 Mg Tab) 10 mg PO DAILY [facility] Stop: 10/04/22 08:59 Last Admin: 09/06/22 09:08 Dose: 10 mg Fexofenadine HCl (Fexofenadine Hcl 180 Mg Tab) 180 mg PO DAILY PRN PRN Reason: Allergy Symptoms Stop: 10/04/22 05:17 Hydralazine HCl (Hydralazine Hcl 20 Mg/Ml Vial) 5 mg IV Q6H PRN PRN Reason: Hypertension Stop: 10/04/22 05:17 Last Admin: 09/06/22 07:36 Dose: 5 mg Hydromorphone HCl (Hydromorphone Inj 0.5 Mg/0.5 Ml Syr) 0.5 mg IV Q3H PRN PRN Reason: Pain Stop: 09/19/22 23:58 Last Admin: 09/06/22 07:35 Dose: 0.5 mg Ceftriaxone Sodium 2,000 mg/ (Dextrose) 70 mls @ 100 mls/hr IV Q24H [facility]; Protocol Stop: 09/14/22 05:59 Last Infusion: 09/06/22 07:16 Dose: Infused Losartan Potassium (Losartan Potassium 50 Mg Tab) 100 mg PO [facility] [place] Stop: 10/06/22 08:59 Last Admin: 09/06/22 10:13 Dose: 100 mg Metoprolol Tartrate (Metoprolol Tartrate 25 Mg Tab) 12.5 [facility] [place] Stop: 10/04/22 08:59 Last Admin: 09/06/22 09:08 Dose: 12.5 mg Miscellaneous (Remove Nicoderm Patch) 1 each N/A DAILY@0859 [facility] Stop: 10/07/22 08:58 Nicotine (Nicotine 14 Mg/24 Hr Patch) 14 mg TD [facility] [place] Stop: 10/06/22 14:44 Last Admin: 09/06/22 15:18 Dose: 14 mg Nitroglycerin (Nitroglycerin Sl 0.4 Mg/Tab Tab) 0.4 mg SL UD PRN PRN Reason: Chest Pain Stop: 10/04/22 05:17 Ondansetron HCl (Ondansetron Inj 2 Mg/Ml 2 Ml Vial) 4 mg IV Q6H PRN PRN Reason: Nausea Stop: 10/04/22 05:17 Pantoprazole Sodium (Pantoprazole 40 Mg Tab) 40 mg PO BID JANETT Stop: 10/04/22 08:59 Last Admin: 09/06/22 09:09 Dose: 40 mg Rosuvastatin Calcium (Rosuvastatin Calcium 5 Mg Tab) 5 mg PO TuTh@0900 JANETT Stop: 10/06/22 08:59 Last Admin: 09/06/22 09:09 Dose: 5 mg Tramadol HCl (Tramadol Hcl 50 Mg Tablet) 50 mg PO BID PRN PRN Reason: Pain Stop: 10/04/22 05:17 Last Admin: 09/06/22 10:42 Dose: 50 mg
[2022-09-06 20:56] LABS: Base Excess ABG 0.6 mEq/L (-9-1.8); HCO3 ABG 25 mmol/L (19-24); Oxygen Saturation ABG 99.2 % (90-95); PCO2 ABG 36 mmHg (35-46); PO2 ABG 89 mmHg (80-95); pH ABG 7.44 (7.35-7.45)
[2022-09-06 20:57] LABS: Allen Test Pos (Pos)
--- NOTE | 2022-09-06 21:24 | CT Scan Report ---
Exam(s): CT HEAD Without Contrast EXAM: CT Head Without Intravenous Contrast CLINICAL HISTORY: Reason for exam: confusion. TECHNIQUE: Axial computed tomography images of the head/brain without intravenous contrast. CTDI is 35.07 mGy and DLP is 614.27 mGy-cm. Automated exposure control was utilized for the study. A dose lowering technique was utilized adhering to the principles of ALARA. COMPARISON: No relevant prior studies available. FINDINGS: Brain: Generalized parenchymal volume loss. Confluent hypoattenuation in the cerebral white matter in keeping with moderate chronic small vessel ischemic disease. Vela-white matter differentiation maintained. No acute intracranial hemorrhage, mass-effect, or edema. Ventricles: Enlarged ventricles due to central cerebral volume loss. Bones/joints: Unremarkable. No acute fracture. Soft tissues: Unremarkable. Vasculature: Intracranial atherosclerosis. Sinuses: Unremarkable as visualized. No acute sinusitis. Mastoid air cells: Unremarkable as visualized. No mastoid effusion. IMPRESSION: No acute intracranial process. Electronically signed by: Lissy Knutson M.D. 09/06/22 21:23 PM
[2022-09-07] MEDS: cefTRIAXone SODIUM 2,000 MG in DEXTROSE 5% 50 ML IV SCH (05:48)
--- NOTE | 2022-09-07 06:55 | Orthopedic Progress Note ---
Date of Service September 07, 2022 Assessment & Plan (1) Status post right hip replacement: Unfortunately she is struggling some with physical therapy. She was a maximum assist yesterday. Case management has seen her and is looking to place her at a rehab facility when she is more stable. She is on aspirin and Plavix for DVT prophylaxis. She is orthopedically stable for discharge when medically ready. Full orthopedic discharge instructions were placed in the discharge summary. Magdalena Ochoa was seen and examined at bedside this morning. She is having some pain in her hip. She really struggled with physical therapy yesterday. She had no acute events and no new complaints.. Review of Systems All systems reviewed & are unremarkable except as noted in HPI & below. Physical Exam On physical examination the right hip, the reinforced dressing seems to be dry. It does not seem to be leaking any further. Her leg lengths are equal.. Results & Data Results & Data Laboratory Results . Diagnostic Findings . PG Care Time/CCT Total # of Minutes Spent Total Time Spent with Patient: Total time spent is greater than 50% in coordination of care (as documented) at patient's floor/unit and/or counseling patient: Coding Level of Care Code 51463 Post Operative Follow-Up Diagnoses Status post right hip replacement Z96.641
[2022-09-07 07:13] LABS: Hematocrit (blood only) 30.2 % (37.0-47.0); Hemoglobin 10.5 g/dl (12.0-16.0); Mean Corpuscular Hemoglobin 29.5 pg (25.0-34.0); Mean Corpuscular Hgb Conc 34.8 g/dL (32.0-36.0); Mean Corpuscular Volume 84.8 fL (80.0-100.0); Mean Platelet Volume 11.5 fL (9.4-12.4); Platelet Count 216 K/uL (130-400); RDW Standard Deviation 43.7 fL (36.4-46.3); Red Blood Count 3.56 M/uL (4.20-5.40)
[2022-09-07 07:31] LABS: BUN Creatinine Ratio 19.7 (10-20); Calcium 8.9 mg/dl (8.6-10.3); Creatinine Clr Calc Pharmacy 67.3 ml/min; Est GFR (African American) 97.8 ml/min; Est GFR (Non-African American) 84.4 ml/min; Potassium 3.2 mmol/L (3.5-5.1)
[2022-09-07] MEDS: CLOPIDOGREL BISULFATE 75 MG TAB PO SCH (09:09)
[2022-09-07] MEDS: PANTOprazole 40 MG TAB PO SCH ×2 (09:09→20:04)
[2022-09-07] MEDS: amLODIPine BESYLATE 5 MG TAB PO SCH (09:11)
[2022-09-07] MEDS: ASPIRIN 81 MG ECTAB PO SCH (09:11)
[2022-09-07] MEDS: EZETIMIBE 10 MG TABLET PO SCH (09:11)
[2022-09-07] MEDS: NICOTINE 14 MG/24 HR PATCH TD SCH (09:11)
[2022-09-07] MEDS: METOPROLOL TARTRATE 25 MG TAB PO SCH (09:11)
[2022-09-07] MEDS: ESCITALOPRAM OXALATE 10 MG TAB PO SCH (09:12)
[2022-09-07] MEDS: ACETAMINOPHEN 325 MG TAB PO PRN (09:12)
[2022-09-07] MEDS: LOSARTAN POTASSIUM 50 MG TAB PO SCH (09:12)
[2022-09-07] MEDS ORDERED: POTASSIUM CHLORIDE CRTAB 20 MEQ TABCR PO ONE (10:49)
[2022-09-07] MEDS ORDERED: GLYCERIN ADULT 12 SUPP/BOX SUPP PR PRN (15:01)
[2022-09-07] MEDS: DOCUSATE SODIUM 100 MG CAP PO SCH ×2 (15:12→20:04)
[2022-09-07] MEDS: POLYETHYLENE (MIRALAX) 17 GM PACK PO SCH (15:12)
--- NOTE | 2022-09-07 15:57 | Hospitalist Progress Note ---
Date of Service September 07, 2022 Assessment & Plan (1) Fracture of hip, right, closed: Plan: Mechanical fall Right hip fracture POD#2 right bipolar hip hemiarthroplasty Activity and wound care orders as per ortho Pain control PT/OT Monitor H/H for acute blood loss anemia and transfuse blood products PRN EBL 200 cc Will remove watson today UTI May have contributed to fall Urine culture grew Klebsiella, on IV ceftriaxone (day 4) Acute blood loss anemia Preop Hgb 11.7 --> 9.8 --> 10.5 No indication for transfusion Hypokalemia K+ 3.2, replaced Follow electrolytes Constipation Nursing reports small BM today, patient c/o intermittent abdominal pain. No nausea or vomiting. Abdomen is soft. Start bowel regimen History of CAD S/p stenting On ASA, Plavix, statin, beta-cecilia Appears stable HTN On amlodipine, losartan, metoprolol Losartan held preoperatively, resumed /. Home doses of amlodipine and metoprolol continued. BP improved with pain control and resumed losartan. GERD Continue PPI Depression Continue home meds DVT prophylaxis On ASA and Plavix --acceptable DVT prophylaxis as per Ortho Dispo-likely needs rehab, case management following Admission and Anticipated Discharge Date Admission Date: September 04, 2022 Supervising Physician Co-Signing Physician Notes Patient is seen and examined at bedside. Offers no complaints today. Left hip surgical site--denies any significant pain. Also denies any dysuria, hematuria, chest pain, dyspnea. On exam patient is moderately built and nourished, no apparent distress, normocephalic atraumatic, EOMI, normal bowel sounds, clear to auscultation, S1-S2, no murmur, no apparent edema, abdomen soft, nontender, normal bowel sounds, left hip surgical site in dressing, alert, awake, oriented, grossly no focal deficits. Right hip fracture secondary to mechanical fall S/P right hip hemiarthroplasty. Pain control. Bowel regimen to prevent constipation. UTI growing Klebsiella. Continue IV Rocephin for now. Hypokalemia --replace electrolytes as needed. Continue PT OT, rehab as able. I personally reviewed the record. Patient is interviewed and examined at bedside. Patient's care is coordinated with Aishwarya Paula CERTIFIED PEER SPECIALIST. Please refer to the documentation above for details of patient's presentation and for discussion of other issues. Subjective Follow-up for right hip fracture s/p repair. Patient resting in bed, sleeping. Reports pain is well controlled. Has some occasional abdominal pain, no nausea or vomiting. Nursing reports small BM today. No chest pain or shortness of breath. Review of Systems Review of Systems: All systems reviewed & are unremarkable except as noted in Subjective Physical Exam Constitutional: WD/WN, vitals as above no acute distress Respiratory: normal respiratory effort, lungs clear to auscultation Cardiovascular: Rate/Rhythm: regular rate and regular rhythm Vessels: normal peripheral pulses Extremities: no edema Gastrointestinal (Abdomen): Percussion/Palpation: abdomen soft; abdomen nontender Musculoskeletal: S/p right hip surgery, dressing CDI, CSM checks intact RLE Skin: no rashes, warm and dry Neurologic: no focal motor deficits Psychiatric: Sleeping but arouses easily to verbal stimuli, oriented Results & Data Results & Data Vital Signs (Past 12 Hours) Vital Signs Temp Pulse Resp BP Pulse Ox O2 Del Method 09/07/22 07:36 Room Air 09/07/22 07:38 36.5 C 96 H 18 166/78 H 95 Room Air Laboratory Results Short CBC 09/07/22 Range/Units 06:55 WBC 12.20 H (4.8-10.8) K/ul Hgb 10.5 L (12.0-16.0) g/dl Hct 30.2 L (37.0-47.0) % Plt Count 216 (130-400) K/uL BMP 09/07/22 06:55 Sodium 137 Potassium 3.2 L Chloride 104 Carbon Dioxide 25 BUN 12 Creatinine 0.61 Glucose 122 H Calcium 8.9
[2022-09-08] MEDS: cefTRIAXone SODIUM 2,000 MG in DEXTROSE 5% 50 ML IV SCH (06:21)
[2022-09-08 07:11] LABS: Hematocrit (blood only) 28.5 % (37.0-47.0); Hemoglobin 9.8 g/dl (12.0-16.0); Mean Corpuscular Hemoglobin 29.3 pg (25.0-34.0); Mean Corpuscular Hgb Conc 34.4 g/dL (32.0-36.0); Mean Corpuscular Volume 85.3 fL (80.0-100.0); Mean Platelet Volume 11.8 fL (9.4-12.4); Platelet Count 265 K/uL (130-400); RDW Coefficient of Variation 14.6 % (11.5-14.5); Red Blood Count 3.34 M/uL (4.20-5.40); White Blood Count 12.95 K/ul (4.8-10.8)
[2022-09-08 07:16] LABS: BUN Creatinine Ratio 21.1 (10-20); Creatinine Clr Calc Pharmacy 57.9 ml/min; Est GFR (African American) 91.9 ml/min; Est GFR (Non-African American) 79.3 ml/min; Potassium 3.6 mmol/L (3.5-5.1)
[2022-09-08] MEDS: amLODIPine BESYLATE 5 MG TAB PO SCH (09:15)
[2022-09-08] MEDS: ASPIRIN 81 MG ECTAB PO SCH (09:15)
[2022-09-08] MEDS: EZETIMIBE 10 MG TABLET PO SCH (09:16)
[2022-09-08] MEDS: ESCITALOPRAM OXALATE 10 MG TAB PO SCH (09:16)
[2022-09-08] MEDS: DOCUSATE SODIUM 100 MG CAP PO SCH ×2 (09:16→20:16)
[2022-09-08] MEDS: CLOPIDOGREL BISULFATE 75 MG TAB PO SCH (09:16)
[2022-09-08] MEDS: METOPROLOL TARTRATE 25 MG TAB PO SCH (09:17)
[2022-09-08] MEDS: LOSARTAN POTASSIUM 50 MG TAB PO SCH (09:17)
[2022-09-08] MEDS: ROSUVASTATIN CALCIUM 5 MG TAB PO SCH (09:18)
[2022-09-08] MEDS: POLYETHYLENE (MIRALAX) 17 GM PACK PO SCH (09:28)
[2022-09-08] MEDS: PANTOprazole 40 MG TAB PO SCH ×2 (09:59→20:16)
[2022-09-08] MEDS: NICOTINE 14 MG/24 HR PATCH TD SCH (10:04)
--- NOTE | 2022-09-08 15:29 | Hospitalist Progress Note ---
Date of Service September 08, 2022 Assessment & Plan (1) Fracture of hip, right, closed: Plan: Mechanical fall Right hip fracture POD#3 right bipolar hip hemiarthroplasty Activity and wound care orders as per ortho Pain control PT/OT Monitor H/H for acute blood loss anemia and transfuse blood products PRN EBL 200 cc UTI May have contributed to fall Urine culture grew Klebsiella Completed 5 days of ceftriaxone Acute blood loss anemia Preop Hgb 11.7 --> 9.8 --> 10.5 --> 9.8 No indication for transfusion Hypokalemia Replaced, resolved Follow electrolytes Constipation Resolved Continue bowel regimen History of CAD S/p stenting On ASA, Plavix, statin, beta-cecilia Appears stable HTN On amlodipine, losartan, metoprolol Losartan held preoperatively, resumed 09/06. Home doses of amlodipine and metoprolol continued. BP improved with pain control and resumed losartan. GERD Continue PPI Depression Continue home meds DVT prophylaxis On ASA and Plavix --acceptable DVT prophylaxis as per Ortho Dispo-d/c to [facility] tomorrow I spent a total of 20 minutes coordinating, documenting, and providing care for this patient excluding time spent in the performance of separately billed serv ices. This included personally reviewing all current laboratories and imaging studies, medication reconciliation, outpatient chart review, and discussion with specialists. Admission and Anticipated Discharge Date Admission Date: September 04, 2022 Supervising Physician Co-Signing Physician Notes Patient is seen and examined at bedside. Sleepy during my encounter. Offers no new complaints. Right hip surgical site pain is well controlled. Sitting in chair during my encounter. Waiting for rehab placement. On exam patient is moderately built and nourished, no apparent distress, normocephalic atraumatic, EOMI, normal bowel sounds, clear to auscultation, S1-S2, no murmur, no apparent edema, abdomen soft, nontender, normal bowel sounds, left hip surgical site in dressing, alert, awake, oriented, grossly no focal deficits. Right hip fracture secondary to mechanical fall S/P right hip hemiarthroplasty. Pain control. Bowel regimen to prevent constipation. UTI grew Klebsiella--completed IV Rocephin course. Hypokalemia --replace electrolytes as needed. Continue PT OT, rehab as able. Plan to be discharged to rehab facility tomorrow. I personally reviewed the record. Patient is interviewed and examined at bedside. Patient's care is coordinated with Asihwarya Paula POLYMER SPECIALIST. Please refer to the documentation above for details of patient's presentation and for discussion of other issues. Subjective Follow-up for right hip fracture s/p repair. Patient seen and examined. Reports pain is well controlled, offers no complaints. Urinating and + BM as per nursing. Review of Systems Review of Systems: All systems reviewed & are unremarkable except as noted in Subjective Physical Exam Constitutional: WD/WN, vitals as above Eyes: Legally blind Respiratory: normal respiratory effort, lungs clear to auscultation Cardiovascular: Rate/Rhythm: regular rate and regular rhythm Vessels: normal peripheral pulses Extremities: no edema Gastrointestinal (Abdomen): Percussion/Palpation: abdomen soft; abdomen nontender Musculoskeletal: s/p right hip surgery, dressing in place with some staining, reinforcement dressing intact, CSM checks intact RLE Skin: no rashes, warm and dry Neurologic: no focal motor deficits Psychiatric: Orientation: alert and oriented to person; + not oriented to place and + not oriented to time Results & Data Results & Data Vital Signs (Past 12 Hours) Vital Signs Temp Pulse Resp BP Pulse Ox O2 Del Method O2 Flow Rate 09/08/22 11:12 36.6 C 73 16 137/73 99 Nasal Cannula 2 09/08/22 09:13 89 143/81 H 95 Room Air 09/08/22 07:15 Nasal Cannula 2 09/08/22 07:31 36.8 C 90 18 146/77 H 98 Nasal Cannula 2 Laboratory Results Short CBC 09/08/22 Range/Units 06:11 WBC 12.95 H (4.8-10.8) K/ul Hgb 9.8 L (12.0-16.0) g/dl Hct 28.5 L (37.0-47.0) % Plt Count 265 (130-400) K/uL BMP 09/08/22 06:11 Sodium 141 Potassium 3.6 Chloride 107 Carbon Dioxide 28 BUN 15 Creatinine 0.71 Glucose 106 H Calcium 9.0
[2022-09-08] MEDS: traMADol HCL 50 MG TABLET PO PRN (20:16)
[2022-09-09] MEDS: ACETAMINOPHEN 325 MG TAB PO PRN (00:17)
[2022-09-09 08:05] LABS: Hemoglobin 9.2 g/dl (12.0-16.0); Mean Corpuscular Hemoglobin 29.4 pg (25.0-34.0); Mean Corpuscular Hgb Conc 34.1 g/dL (32.0-36.0); Mean Corpuscular Volume 86.3 fL (80.0-100.0); Mean Platelet Volume 10.9 fL (9.4-12.4); Platelet Count 275 K/uL (130-400); RDW Coefficient of Variation 14.7 % (11.5-14.5); RDW Standard Deviation 46.6 fL (36.4-46.3); Red Blood Count 3.13 M/uL (4.20-5.40); White Blood Count 11.22 K/ul (4.8-10.8)
[2022-09-09] MEDS: ESCITALOPRAM OXALATE 10 MG TAB PO SCH (08:07)
[2022-09-09] MEDS: DOCUSATE SODIUM 100 MG CAP PO SCH (08:07)
[2022-09-09] MEDS: EZETIMIBE 10 MG TABLET PO SCH (08:07)
[2022-09-09] MEDS: amLODIPine BESYLATE 5 MG TAB PO SCH (08:08)
[2022-09-09] MEDS: ASPIRIN 81 MG ECTAB PO SCH (08:09)
[2022-09-09] MEDS: METOPROLOL TARTRATE 25 MG TAB PO SCH (08:09)
[2022-09-09] MEDS: PANTOprazole 40 MG TAB PO SCH (08:10)
[2022-09-09] MEDS: LOSARTAN POTASSIUM 50 MG TAB PO SCH (08:10)
[2022-09-09] MEDS: POLYETHYLENE (MIRALAX) 17 GM PACK PO SCH (08:11)
[2022-09-09] MEDS: NICOTINE 14 MG/24 HR PATCH TD SCH (08:13)
[2022-09-09 08:19] LABS: Calcium 8.7 mg/dl (8.6-10.3); Creatinine Clr Calc Pharmacy 65.2 ml/min; Est GFR (African American) 96.8 ml/min; Est GFR (Non-African American) 83.5 ml/min; Potassium 3.1 mmol/L (3.5-5.1)
[2022-09-09] MEDS ORDERED: POTASSIUM CHLORIDE CRTAB 20 MEQ TABCR PO ONE (09:14)
--- NOTE | 2022-09-09 09:16 | Hospitalist Progress Note ---
Date of Service September 09, 2022 Assessment & Plan (1) Fracture of hip, right, closed: Plan: Mechanical fall Right hip fracture S/P Right bipolar hip hemiarthroplasty by on 09/05/22 Activity and wound care orders as per ortho Pain control PT/OT Monitor H/H for acute blood loss anemia and transfuse blood products PRN Plan to discharge to rehab facility today UTI May have contributed to fall Urine culture grew Klebsiella Completed 5 days of ceftriaxone Acute blood loss anemia Preop Hgb 11.7 --> 9.8 --> 10.5 --> 9.2 No indication for transfusion Hypokalemia Replaced, resolved Follow electrolytes Constipation Resolved Continue bowel regimen History of CAD S/p stenting On ASA, Plavix, statin, beta-cecilia Appears stable HTN On amlodipine, losartan, metoprolol Losartan held preoperatively, resumed 09/06. Home doses of amlodipine and metoprolol continued. Continue current meds GERD Continue PPI Depression Continue home meds DVT prophylaxis On ASA and Plavix --acceptable DVT prophylaxis as per Ortho Disposition Rehab Admission and Anticipated Discharge Date Admission Date: September 04, 2022 Subjective Patient is seen and examined at bedside States feeling well today Offers no complaints Right hip with surgical site is controlled. Denies any chest pain, dyspnea, dizziness, nausea, abdominal pain Discussed with patient's family at bedside Plan to be discharged to rehab facility today. Review of Systems Review of Systems: All systems reviewed & are unremarkable except as noted in Subjective Physical Exam Physical Exam: Physical Exam: Vitals signs as noted above General Appearance:Moderately built and nourished, no apparent distress Head: normocephalic, Atraumatic Eyes: normal inspection, EOMI, Legally blind Neck: supple, Trachea midline Respiratory/Chest: Normal breath sounds, CTA, No accessory muscle use Cardiovascular: S1, S2, No murmur Abdomen/GI:Soft, Non tender, Bowel sounds present Extremities/Musculoskeletal:normal inspection, no edema, R hip surgical site in dressing Neurologic/Psych:AAOX3, grossly no focal neurological deficits Skin: normal color, warm Results & Data Results & Data Vital Signs (Past 12 Hours) Vital Signs Temp Pulse Resp BP BP Pulse Ox O2 Del Method 09/09/22 07:31 36.7 C 63 16 134/75 91 Room Air 09/08/22 22:22 37.0 C 86 18 168/65 H 92 Room Air Laboratory Results Short CBC 09/09/22 Range/Units 07:48 WBC 11.22 H (4.8-10.8) K/ul Hgb 9.2 L (12.0-16.0) g/dl Hct 27.0 L (37.0-47.0) % Plt Count 275 (130-400) K/uL BMP 09/09/22 07:48 Sodium 141 Potassium 3.1 L Chloride 106 Carbon Dioxide 29 BUN 12 Creatinine 0.63 Glucose 105 H Calcium 8.7
[2022-09-09] MEDS: CLOPIDOGREL BISULFATE 75 MG TAB PO SCH (09:20)
--- NOTE | 2022-09-09 13:07 | Discharge Summary ---
Date of Service September 09, 2022 Admission HPI Per Admitting Provider CHIEF COMPLAINT: Status post fall and right hip fracture. HISTORY OF PRESENT ILLNESS: An 81-year-old female with past medical history significant for hyperlipidemia, COPD, multiple lung nodules on CT scan, history of CAD, hypertension, GERD, chronic kidney disease stage III, generalized osteoarthritis, restless legs syndrome, depression, history of melanoma in situ, right thigh; CAD status post stent, history of tobacco use, seasonal allergies, she has very poor vision, but able to ambulate without support at home, comes because of fall. The patient was going to [facility], where there are 2 steps, she missed last step and fell on the right side, did not hit her head, no loss of consciousness, could not able to get up, was brought in here. is in the room. The patient is somewhat hard of hearing. Imaging studies show right hip fracture. Currently, pain is under control. Denies any chest pain, no shortness of breath, no nausea, no abdominal pain. Normal bowel and bladder movements. No fevers, no cough, no headache, no earache, no runny nose, no sore throat. Hemodynamics are stable. Admission Exam Per Admitting Provider PHYSICAL EXAMINATION: GENERAL: The patient is old and frail, not in acute distress. VITAL SIGNS: Temperature 36.8, pulse 77, respiratory rate 17, blood pressure 184/87, oxygen 96% on 2 liters. HEENT: Pupils equal, round and reactive to light. Oral mucosa dry. NECK: No JVD. No neck masses. CARDIOVASCULAR: S1 and S2 heard. Regular rate and rhythm. No murmur, no gallop. RESPIRATORY SYSTEM: Normal AP diameter. No accessory muscle use. No wheezing, no crackles. ABDOMEN: Soft, bowel sounds present, nontender, no distention. CENTRAL NERVOUS SYSTEM: Alert and oriented. Hard of hearing. No facial droop. Speech is clear. Obeys simple commands. Moves extremities. EXTREMITIES: Right lower extremity is slightly shortened. No edema, no erythema seen. Principal Diagnosis Right femoral neck fracture UTI Discharge Data Allergies Allergy/AdvReac Type Severity Reaction Status Date / Time celecoxib Allergy Intermediate RASH Verified 03/15/19 23:40 Sulfa (Sulfonamide Allergy Intermediate RASH HIVES Verified 03/15/19 23:40 Antibiotics) Latex, Natural Rubber Allergy Mild Rash Verified 03/16/19 05:25 rofecoxib AdvReac Intermediate BLEEDING Verified 03/15/19 23:40 Procedures Performed Operation Date: 09/05/22 08:25 Actual Procedures p Right Bipolar Hip Arthroplasty Anterior(Right) - Michele Devries DO Ordered Studies 09/05/22 FL hip RT 1V Routine 09/06/22 20:24 CT head/brain wo con Urgent Laboratory Results WBC 11.22 K/ul (4.8-10.8) H 09/09/22 07:48 RBC 3.13 M/uL (4.20-5.40) L 09/09/22 07:48 Hgb 9.2 g/dl (12.0-16.0) L 09/09/22 07:48 Hct 27.0 % (37.0-47.0) L 09/09/22 07:48 MCV 86.3 fL (80.0-100.0) 09/09/22 07:48 MCH 29.4 pg (25.0-34.0) 09/09/22 07:48 MCHC 34.1 g/dL (32.0-36.0) 09/09/22 07:48 RDW Std Deviation 46.6 fL (36.4-46.3) H 09/09/22 07:48 RDW Coeff of Jamison 14.7 % (11.5-14.5) H 09/09/22 07:48 Plt Count 275 K/uL (130-400) 09/09/22 07:48 MPV 10.9 fL (9.4-12.4) 09/09/22 07:48 Immature Gran % (Auto) 0.4 % 09/05/22 05:54 Neut % (Auto) 85.8 % 09/05/22 05:54 Lymph % (Auto) 7.8 % 09/05/22 05:54 Cataño % (Auto) 4.8 % 09/05/22 05:54 Eos % (Auto) 0.9 % 09/05/22 05:54 Baso % (Auto) 0.3 % 09/05/22 05:54 Neut # (Auto) 12.31 K/uL (1.40-6.50) H 09/05/22 05:54 Lymph # (Auto) 1.12 K/uL (1.2-3.4) L 09/05/22 05:54 Cataño # (Auto) 0.69 K/uL (0.11-0.59) H 09/05/22 05:54 Eos # (Auto) 0.13 K/uL (0-0.50) 09/05/22 05:54 Baso # (Auto) 0.04 K/uL (0-0.2) 09/05/22 05:54 Immature Gran # (Auto) 0.06 K/uL (0.01-0.20) 09/05/22 05:54 PT 10.5 Seconds (9.0-12.0) 09/03/22 23:55 INR 1.0 (0.9-1.1) 09/03/22 23:55 APTT 23.7 Seconds (21.0-31.0) 09/03/22 23:55 PTT Ratio 0.9 09/03/22 23:55 ABG pH 7.44 (7.35-7.45) 09/06/22 20:41 ABG pCO2 36 mmHg (35-46) 09/06/22 20:41 ABG pO2 89 mmHg (80-95) 09/06/22 20:41 ABG HCO3 25 mmol/L (19-24) H 09/06/22 20:41 ABG O2 Saturation 99.2 % (90-95) H 09/06/22 20:41 ABG Base Excess 0.6 mEq/L (-9-1.8) 09/06/22 20:41 Jeffery Test Pos (Pos) 09/06/22 20:41 Oxygen Given 2L 09/06/22 20:41 Sodium 141 mmol/L (136-145) 09/09/22 07:48 Potassium 3.1 mmol/L (3.5-5.1) L 09/09/22 07:48 Chloride 106 mmol/L (98-107) 09/09/22 07:48 Carbon Dioxide 29 mmol/L (21-32) 09/09/22 07:48 Anion Gap 6 (3-11) 09/09/22 07:48 BUN 12 mg/dl (6-23) 09/09/22 07:48 Creatinine 0.63 mg/dl (0.6-1.2) 09/09/22 07:48 Est Cr Clr Drug Dosing 65.2 ml/min 09/09/22 07:48 Est GFR ( Amer) 96.8 ml/min 09/09/22 07:48 Est GFR (Non-Af Amer) 83.5 ml/min 09/09/22 07:48 BUN/Creatinine Ratio 19.0 (10-20) 09/09/22 07:48 Glucose 105 mg/dl (70-99(Fasting)) H 09/09/22 07:48 Calcium 8.7 mg/dl (8.6-10.3) 09/09/22 07:48 Phosphorus 3.0 mg/dl (2.5-4.9) 09/05/22 05:54 Magnesium 2.0 mg/dl (1.7-2.4) 09/08/22 06:11 Total Bilirubin 0.6 mg/dl (0.2-1.0) 09/03/22 23:55 AST 14 U/L (13-39) 09/04/22 04:08 ALT 9 U/L (7-52) 09/03/22 23:55 Alkaline Phosphatase 46 U/L (34-104) 09/03/22 23:55 Total Protein 6.8 gm/dl (6.0-8.3) 09/03/22 23:55 Albumin 3.9 gm/dl (3.4-5.0) 09/03/22 23:55 Globulin 2.9 gm/dl (2.5-4.0) 09/03/22 23:55 Albumin/Globulin Ratio 1.3 (0.9-2) 09/03/22 23:55 Urine Color Yellow 09/04/22 00:31 Urine Appearance Clear (Clear) 09/04/22 00:31 Urine pH 5.0 (4.5-7.5) 09/04/22 00:31 Ur Specific [place] 1.021 (1.000-1.030) 09/04/22 00:31 Urine Protein Negative (Negative) 09/04/22 00:31 Urine Glucose (UA) Negative (Negative) 09/04/22 00:31 Urine Ketones Negative (Negative) 09/04/22 00:31 Urine Blood Negative (Negative) 09/04/22 00:31 Urine Nitrite Positive (Negative) A 09/04/22 00:31 Urine Bilirubin Negative (Negative) 09/04/22 00:31 Urine Urobilinogen Negative (Negative) 09/04/22 00:31 Ur Leukocyte Esterase 1+ (Negative) H 09/04/22 00:31 Urine WBC (Auto) 5-10 /hpf (0-5) H 09/04/22 00:31 Urine RBC (Auto) 0-4 /hpf (0-4) 09/04/22 00:31 U Hyaline Cast (Auto) 1-5 /lpf (0-5) 09/04/22 00:31 U Epithel Cells (Auto) >30 /lpf (0-5) H 09/04/22 00:31 Urine Bacteria (Auto) 4+ (Negative) H 09/04/22 00:31 SARS-CoV-2, RNA, NAAT NEGATIVE (NEGATIVE) 09/08/22 15:25 Impressions Hip/Pelvis X-Ray 09/03/22 23:53 XR hip RT 2V w pelvis CLINICAL HISTORY: hip pain TECHNIQUE: 2 views of the right hip and single frontal view of the pelvis were obtained. Comparison: None available at the time of this dictation. FINDINGS: There is no evidence of an acute fracture. Degenerative changes are seen in the hip joint. Vascular calcifications are noted. IMPRESSION: No evidence of acute osseous injury. ACT 112: Negative or not required by law. Electronically signed by: Arik Pulliam M.D. 09/04/2022 10:21 AM Chest X-Ray 09/04/22 05:18 XR chest 1V portable CLINICAL HISTORY: pre op TECHNIQUE: Single frontal radiograph of the chest was obtained. Comparison: Comparison is made to chest radiograph 03/16/2019 FINDINGS: No lines and tubes are seen. Cardiomegaly is noted. The aortic arch is calcified. The lungs are clear. No evidence of pleural effusion or pneumothorax. IMPRESSION: No acute chest disease. ACT 112: Negative or not required by law. Electronically signed by: Arik Pulliam M.D. 09/04/2022 8:24 AM Hip X-Ray 09/05/22 16:00 XR hip RT min 2V CLINICAL HISTORY: Post-Operative implant position COMPARISON: Right hip radiographs September 04, 2022. FINDINGS: Alignment of the right hip arthroplasty is anatomic. There is no periprosthetic fracture. No unexpected radiopaque foreign bodies are present. There are skin fam. IMPRESSION: Expected findings following right hip arthroplasty. ACT 112: Negative or not required by law. Electronically signed by: Darci Koroma M.D. 09/05/2022 4:[address] 09/06/22 20:24 Exam(s): CT HEAD Without Contrast EXAM: CT Head Without Intravenous Contrast CLINICAL HISTORY: Reason for exam: confusion. TECHNIQUE: Axial computed tomography images of the head/brain without intravenous contrast. CTDI is 35.07 mGy and DLP is 614.27 mGy-cm. Automated exposure control was utilized for the study. A dose lowering technique was utilized adhering to the principles of ALARA. COMPARISON: No relevant prior studies available. FINDINGS: Brain: Generalized parenchymal volume loss. Confluent hypoattenuation in the cerebral white matter in keeping with moderate chronic small vessel ischemic disease. Vela-white matter differentiation maintained. No acute intracranial hemorrhage, mass-effect, or edema. Ventricles: Enlarged ventricles due to central cerebral volume loss. Bones/joints: Unremarkable. No acute fracture. Soft tissues: Unremarkable. Vasculature: Intracranial atherosclerosis. Sinuses: Unremarkable as visualized. No acute sinusitis. Mastoid air cells: Unremarkable as visualized. No mastoid effusion. IMPRESSION: No acute intracranial process. Electronically signed by: Lissy Knutson M.D. 09/06/22 21:23 PM Hospital Course (1) Fracture of hip, right, closed: Mechanical fall Right hip fracture S/P Right bipolar hip hemiarthroplasty by on 09/05/22 Activity and wound care orders as per ortho Pain control PT/OT Monitor H/H for acute blood loss anemia and transfuse blood products PRN Plan to discharge to rehab facility today UTI May have contributed to fall Urine culture grew Klebsiella Completed 5 days of ceftriaxone Acute blood loss anemia Preop Hgb 11.7 --> 9.8 --> 10.5 --> 9.2 No indication for transfusion Hypokalemia Replaced, resolved Follow electrolytes Constipation Resolved Continue bowel regimen History of CAD S/p stenting On ASA, Plavix, statin, beta-cecilia Appears stable HTN On amlodipine, losartan, metoprolol Losartan held preoperatively, resumed 09/06. Home doses of amlodipine and metoprolol continued. Continue current meds GERD Continue PPI Depression Continue home meds DVT prophylaxis On ASA and Plavix --acceptable DVT prophylaxis as per Ortho Disposition Rehab Total Time Total Time Spent Total Time Spent (In Minutes): 56 minutes Discharge Plan Discharge Items Patient Disposition: Transfer Intermediate Fac Reason For Visit: Fall, right hip pain Discharge Diagnosis: Right femoral neck fracture UTI Activity: As commented below Activity Comment: As per Ortho recommendations Exercise/Sports: Gradually increase as tolerated Non-emergency contact: Primary Care Provider Call non-emergency contact if: you have any medication questions, your symptoms worsen, your pain is not controlled and you have a fever Follow-up/Referrals: Abhijit Rawls MD [Primary Care Provider] - Diet: Heart Healthy Add Attending Provider Instructions: Patient presented on 09/04 after mechanical fall at home and found to have right femoral neck fracture. S/p right bipolar hip hemiarthroplasty on 09/[address] Devries Also found to have Klebsiella UTI, completed 5 days of IV ceftriaxone On ASA and Plavix --acceptable DVT prophylaxis as per orthopedics Addtl Classroom Paraprofessional Provider Instructions: ORTHOPEDIC INSTRUCTIONS Hip Hemiarthroplasty Activity and Therapy Recommendations: 1. You were shown a series of exercises in the hospital. Do these exercises three times each day if you are able. 2. Get up and walk several times each day if you are capable. Make sure you have assistance is needed. For the first four weeks, try not to stand or walk for more than one hour at a time. If you do stand or walk for more than one hour, you will not hurt anything, but your leg will likely swell. 3. As you feel comfortable, you may change from the walker or crutches to a cane and then to independent walking if you are able. Please be safe. Medications: 1. Narcotic You will likely be sent from the hospital with the narcotic pain medication that worked best throughout your stay. 2. Continue your aspirin and Plavix. 3. Other medications may be given for specific circumstances. If you have any questions, please call the office at [phone]. 4. Resume previous home medications unless otherwise instructed TEDs/Elastic Stockings: The white elastic stockings help limit swelling and prevent blood clots from forming in your legs. The more you wear them, the more they work. Wear them for six weeks. Dressing Care: Leave the Silverlon dressing in place for 7 days. After 7 days you may remove the dressing. If the incision is not draining then you may leave the fam open to air. If there is a little bit of drainage or if the fam are getting stuck on your clothing then cover the incision with a dry dressing. The fam will be removed at your 2 week follow-up appointment. Showering: You may shower with the Silverlon dressing in place. Do not let the shower spray hit the dressing directly. Pat the Silverlon dressing dry. If the dressing becomes wet underneath, then simply remove the dressing. Keep the incision dry until you are 7 days out from the day of surgery. After 7 days you may remove the Silverlon dressing and shower with the fam exposed. Let soapy water run over the fam and pat them dry. Do not scrub or soak the incision. Things To Watch For: 1. Drainage from the incision site that occurs more than one week after your surgery. 2. Increased redness at the incision site. 3. Fever above 102 degrees Fahrenheit. 4. Unusual chest pain or shortness of breath. 5. Call [facility] at with any of the above problems Follow-Up Visit: Follow-up with Dr. Devries's PA (Michele Estrella) 2-3 weeks after your day of surgery. He will remove your fam and answer any questions. If you have any additional questions or concerns, Dr Devries is usually in the office at the same time and will be available Please call the office to make an appointment for a time that works for you. Pending Studies at Discharge: No Stand-Alone Forms: My [facility] Skilled Items Patient informed of condition?: Yes DNR: No Discharge Level of Care: Skilled Communicable Disease: No Discharge Prognosis: Stable Lines: None Urinary Catheter: No Medications and DC Order Prescriptions: New nicotine 7 mg/24 hr Patch 24 Hour 14 mg transdermal QAM Qty: 7 0RF docusate sodium 100 mg Capsule 100 mg PO BID Qty: 1 0RF polyethylene glycol 3350 [Miralax] 17 gram Powder In Packet 17 g PO DAILY Qty: 30 0RF potassium chloride 20 mEq tablet extended release 20 meq PO DAILY Qty: 3 0RF Continued tramadol 50 mg Tablet 50 mg PO BID PRN (Reason: Pain) clopidogrel [Plavix] 75 mg Tablet 75 mg PO QAM pantoprazole [Protonix] 40 mg Tablet,Delayed Release (Dr/Ec) 40 mg PO BID amlodipine 5 mg Tablet 5 mg PO DAILY losartan [Cozaar] 100 mg Tablet 100 mg PO QAM rosuvastatin [Crestor] 5 mg Tablet 5 mg PO 2XWK Rx Instructions: takes 5mg 2 times/week Prempro 0.45-1.5 mg Tablet 1 tab PO DAILY ezetimibe [Zetia] 10 mg Tablet 10 mg PO QAM metoprolol tartrate 25 mg Tablet 12.5 mg PO QAM fexofenadine [Sil Allergy] 180 mg Tablet 180 mg PO DAILY PRN (Reason: Allergy Symptoms) aspirin 81 mg Tablet,Delayed Release (Dr/Ec) 81 mg PO DAILY nitroglycerin 0.4 mg Tablet, Sublingual 0.4 mg sublingual DIRECTED PRN (Reason: Chest Pain) Rx Instructions: take 1 tab every 5 min as needed for chest pain up to 3 tabs ondansetron 4 mg tablet,disintegrating 4 mg PO Q6H PRN (Reason: nausea and vomiting) Qty: 14 0RF escitalopram oxalate 10 mg tablet 10 mg PO DAILY Discharge Orders: Discharge Order (Routine); Ordered 09/09/22 Ordered By: Rafy Joseph/Other Patient Handouts: After Hip Replacement: Home Safety Admission Data Admit Date/Time: 09/04/22 03:24 Attending Provider: Rafy Tobin Admit Provider: Mode Ann Primary Care Provider: Abhijit Rawls Other Providers: Cameron Canseco [place] Other Interventions: Discharge Summary Assessment (RN) Last Done: 09/09/22 09:47
== END 2022-09-09 10:19 | DRG 522 ==
LOC: ED 23:34 → 3W 09-04 03:24 → SUATTDRO 09-04 03:24 → 3W 09-04 05:01